=== PATIENT | male | born 1945 | race Caucasian/White ===

== ENCOUNTER 2021-10-19 08:37 | Inpatient (IN) ==
[2021-10-19] MEDS ORDERED: *HR* LORazepam 0.5 MG TABLET PO PRN (11:38)
[2021-10-19] MEDS ORDERED: Nitroglycerin 0.4 MG TAB.SUBL SL PRN (11:38)
[2021-10-19] MEDS ORDERED: HALOPERIDOL 0.5 MG PO PRN (11:38)
[2021-10-19] MEDS ORDERED: Hyoscyamine SL 0.125 MG TAB.SUBL SL PRN (11:38)
[2021-10-19] MEDS ORDERED: Bisacodyl 10 MG RECTAL SUPPOSITORY RC PRN (11:38)
[2021-10-19] MEDS ORDERED: [UNRECOGNIZED DRUG - OTHER] IVPB SCH (11:45)
[2021-10-19] MEDS ORDERED: *HR* Dextrose 50 % in Water (Syg) 50 ML SYRINGE IVP PRN (11:45)
[2021-10-19] MEDS ORDERED: D5% in Water 1,000 ML IVC PRN (11:45)
[2021-10-19] MEDS ORDERED: Dextrose Gel 15 GM/37.5 ML TUBE PO PRN ×2 (11:45)
[2021-10-19] MEDS ORDERED: VANCOMYCIN IVPB SCH (11:45)
[2021-10-19] MEDS ORDERED: Gabapentin 100 MG CAPSULE PO SCH (15:00)
[2021-10-19] MEDS ORDERED: Gabapentin 400 MG CAPSULE PO SCH (15:00)
[2021-10-19] MEDS ORDERED: Insulin LISPRO 300 UNITS/3 ML VIAL SUBQ SCH ×2 (16:30→21:00)
[2021-10-19] MEDS ORDERED: METFORMIN HCL 1000 MG PO SCH (21:00)
[2021-10-19] MEDS ORDERED: Furosemide 40 MG TABLET PO SCH (21:00)
[2021-10-19] MEDS ORDERED: NON-FORMULARY MEDICATION 1 EACH EACH (Carvedilol [Carvedilol] 12.5 MG Tablet) PO SCH (21:00)
[2021-10-19] MEDS ORDERED: Insulin DETEMIR 100 UNIT/ML X5UNITS SUBQ SCH (21:00)
[2021-10-20] MEDS ORDERED: *HR* Enoxaparin 40 MG/0.4 ML SYRINGE SQ SCH (07:00)
[2021-10-20] MEDS ORDERED: Aspirin Enteric Coated 81 MG Tablet PO SCH (09:00)
[2021-10-20] MEDS ORDERED: CILOSTAZOL 50 MG PO SCH (09:00)
[2021-10-20] MEDS ORDERED: Valsartan 160 MG TABLET PO SCH (09:00)
[2021-10-20] MEDS ORDERED: *HR* Glimepiride 4 MG TABLET PO SCH (09:00)
[2021-11-01] MEDS ORDERED: haloperidoL 1 MG TABLET PO PRN (00:10)
[2021-11-01] MEDS ORDERED: *HR* Dextrose 50 % in Water (Syg) 50 ML SYRINGE IVP PRN ×2 (00:14→09:36)
[2021-11-01] MEDS ORDERED: D5% in Water 1,000 ML IVC PRN ×2 (00:14→09:36)
[2021-11-01] MEDS ORDERED: Dextrose Gel 15 GM/37.5 ML TUBE PO PRN ×4 (00:14→09:36)
[2021-11-01] MEDS ORDERED: Bisacodyl 10 MG RECTAL SUPPOSITORY RC PRN (07:32)
[2021-11-01 08:47] LABS: Hemoglobin 8.9 g/dL (12.9-16.9); Mean Corpuscular HGB Conc 31.8 g/dL (31.6-35.5); Mean Corpuscular Hemoglobin 29.5 pg (28.0-33.3); Mean Corpuscular Volume 92.7 fL (83.0-100.0); Mean Platelet Volume 8.8 fL (9.4-12.4); Platelet Count 374 K/mcL (140-400); Red Blood Count 3.02 M/mcL (4.19-5.50); Red Cell Distribution Width 15.7 % (11.5-14.5); White Blood Count 10.3 K/mcL (4.3-11.1)
[2021-11-01] MEDS ORDERED: Vancomycin 1,250 MG/262.5 ML IV.SOLN IVPB SCH (09:00)
[2021-11-01 09:03] LABS: Alanine Aminotransferase 17 Units/L (7-52); Albumin 3.1 g/dL (3.5-5.7); Albumin/Globulin Ratio 1.3 (1.1-2.2); Alkaline Phosphatase 81 Units/L (34-104); Aspartate Amino Transferase 18 Units/L (13-39); BUN/Creatinine Ratio 13 (6-26); Bilirubin,Total 0.5 mg/dL (0.3-1.0); Blood Urea Nitrogen 13 mg/dL (8-23); Carbon Dioxide 26 mEq/L (23-29); Chloride 106 mEq/L (98-107); Globulin 2.3 g/dL (2.4-3.5); Glucose 143 mg/dL (70-105); Osmolality,Calculated 291 (280-300); Potassium 4.2 mEq/L (3.5-5.1); Sodium 139 mEq/L (136-145); Total Protein 5.4 g/dL (6.4-8.9); eGFR For African Americans > 60 (> 60); eGFR For Non-African Americans > 60 (> 60)
[2021-11-01] MEDS: Isosorbide MONOnitrate (24 HR) 30 MG TAB.ER.24H PO SCH (09:34)
[2021-11-01] MEDS: Gabapentin 400 MG CAPSULE PO SCH ×3 (09:34→20:05)
[2021-11-01] MEDS: *HR* Metformin 500 MG TABLET PO SCH ×2 (09:34→15:59)
[2021-11-01] MEDS: *HR* Amiodarone 200 MG TABLET PO SCH (09:35)
[2021-11-01] MEDS: *HR* Glimepiride 4 MG TABLET PO SCH (09:35)
[2021-11-01] MEDS: Furosemide 40 MG TABLET PO SCH ×2 (09:35→15:59)
[2021-11-01] MEDS: carvediloL 6.25 MG TABLET PO SCH ×2 (09:35→15:59)
[2021-11-01] MEDS: Valsartan 80 MG TABLET PO SCH (09:42)
[2021-11-01] MEDS: Insulin LISPRO 300 UNITS/3 ML VIAL SUBQ SCH ×3 (12:31→19:20)
[2021-11-01] MEDS ORDERED: *HR* Alteplase (Cathflo) 2 MG VIAL IVP ONE (15:12)
[2021-11-01] MEDS: Cefepime HCl 2,000 MG in 0.9 % Sodium Chloride Mini Bag 100 ML IVPB SCH ×2 (15:52→23:21)
[2021-11-01] MEDS: cilostazoL 100 MG TABLET PO SCH (20:05)
[2021-11-01] MEDS: Insulin DETEMIR 100 UNIT/ML X5UNITS SUBQ SCH (20:07)
[2021-11-02] MEDS ORDERED: *HR* Enoxaparin 40 MG/0.4 ML SYRINGE SQ SCH (06:00)
[2021-11-02] MEDS: Cefepime HCl 2,000 MG in 0.9 % Sodium Chloride Mini Bag 100 ML IVPB SCH ×2 (08:33→17:05)
[2021-11-02] MEDS: Isosorbide MONOnitrate (24 HR) 30 MG TAB.ER.24H PO SCH (08:41)
[2021-11-02] MEDS: Gabapentin 400 MG CAPSULE PO SCH ×3 (08:41→22:09)
[2021-11-02] MEDS: carvediloL 6.25 MG TABLET PO SCH ×2 (08:41→17:08)
[2021-11-02] MEDS: Valsartan 80 MG TABLET PO SCH (08:42)
[2021-11-02] MEDS: *HR* Amiodarone 200 MG TABLET PO SCH (08:42)
[2021-11-02] MEDS: Furosemide 40 MG TABLET PO SCH ×2 (08:42→17:08)
[2021-11-02] MEDS: *HR* Glimepiride 4 MG TABLET PO SCH (08:42)
[2021-11-02] MEDS: Insulin LISPRO 300 UNITS/3 ML VIAL SUBQ SCH ×4 (08:43→22:12)
[2021-11-02] MEDS: Insulin DETEMIR 100 UNIT/ML X5UNITS SUBQ SCH ×2 (08:59→22:10)
[2021-11-02 14:16] LABS: Hematocrit 23.9 % (37.5-50.1); Hemoglobin 7.7 g/dL (12.9-16.9); Mean Corpuscular HGB Conc 32.2 g/dL (31.6-35.5); Mean Corpuscular Hemoglobin 29.6 pg (28.0-33.3); Mean Corpuscular Volume 91.9 fL (83.0-100.0); Platelet Count 310 K/mcL (140-400); Red Cell Distribution Width 15.9 % (11.5-14.5); White Blood Count 9.8 K/mcL (4.3-11.1)
[2021-11-02 14:25] LABS: Calcium 8.9 mg/dL (8.6-10.3); Magnesium 1.9 mg/dL (1.6-2.6); Potassium 4.1 mEq/L (3.5-5.1)
[2021-11-02] MEDS: cilostazoL 100 MG TABLET PO SCH (22:08)
[2021-11-03] MEDS: Cefepime HCl 2,000 MG in 0.9 % Sodium Chloride Mini Bag 100 ML IVPB SCH ×3 (01:36→17:23)
[2021-11-03 05:03] LABS: Hemoglobin 7.5 g/dL (12.9-16.9); Mean Corpuscular HGB Conc 31.3 g/dL (31.6-35.5); Mean Corpuscular Hemoglobin 29.3 pg (28.0-33.3); Mean Corpuscular Volume 93.8 fL (83.0-100.0); Mean Platelet Volume 9.1 fL (9.4-12.4); Platelet Count 306 K/mcL (140-400); Red Blood Count 2.56 M/mcL (4.19-5.50); Red Cell Distribution Width 15.8 % (11.5-14.5); White Blood Count 9.6 K/mcL (4.3-11.1)
[2021-11-03 05:15] LABS: Albumin 2.8 g/dL (3.5-5.7); Albumin/Globulin Ratio 1.3 (1.1-2.2); Bilirubin,Total 0.3 mg/dL (0.3-1.0); Globulin 2.1 g/dL (2.4-3.5); Magnesium 1.9 mg/dL (1.6-2.6); Potassium 4.2 mEq/L (3.5-5.1); Total Protein 4.9 g/dL (6.4-8.9)
[2021-11-03] MEDS: Insulin LISPRO 300 UNITS/3 ML VIAL SUBQ SCH ×4 (08:14→21:55)
[2021-11-03] MEDS: *HR* Amiodarone 200 MG TABLET PO SCH (08:16)
[2021-11-03] MEDS: Valsartan 80 MG TABLET PO SCH (08:16)
[2021-11-03] MEDS: carvediloL 6.25 MG TABLET PO SCH ×2 (08:16→17:22)
[2021-11-03] MEDS: Isosorbide MONOnitrate (24 HR) 30 MG TAB.ER.24H PO SCH (08:17)
[2021-11-03] MEDS: *HR* Glimepiride 4 MG TABLET PO SCH (08:17)
[2021-11-03] MEDS: Gabapentin 400 MG CAPSULE PO SCH ×3 (08:17→22:07)
[2021-11-03] MEDS: Furosemide 40 MG TABLET PO SCH (08:17)
[2021-11-03] MEDS: Insulin DETEMIR 100 UNIT/ML X5UNITS SUBQ SCH ×2 (08:35→22:08)
[2021-11-03] MEDS ORDERED: 0.9 % Sodium Chloride 1,000 ML IVC SCH (10:45)
[2021-11-03 19:29] LABS: % Iron Saturation 16 % (20-55); Iron 33 mcg/dL (65-175); Transferrin 149 mg/dL (203-362)
[2021-11-03 19:54] LABS: Folate 9.5 ng/mL (3.0-16.0)
[2021-11-03] MEDS: cilostazoL 100 MG TABLET PO SCH (22:08)
[2021-11-04] MEDS: Cefepime HCl 2,000 MG in 0.9 % Sodium Chloride Mini Bag 100 ML IVPB SCH ×3 (00:40→22:15)
[2021-11-04] MEDS: Insulin LISPRO 300 UNITS/3 ML VIAL SUBQ SCH ×4 (09:56→22:32)
[2021-11-04] MEDS: *HR* Amiodarone 200 MG TABLET PO SCH (09:57)
[2021-11-04] MEDS: Valsartan 80 MG TABLET PO SCH (09:57)
[2021-11-04] MEDS: Isosorbide MONOnitrate (24 HR) 30 MG TAB.ER.24H PO SCH (09:57)
[2021-11-04] MEDS: carvediloL 6.25 MG TABLET PO SCH ×2 (09:57→16:52)
[2021-11-04] MEDS: *HR* Glimepiride 4 MG TABLET PO SCH (09:57)
[2021-11-04] MEDS: Gabapentin 400 MG CAPSULE PO SCH ×3 (09:57→22:13)
[2021-11-04] MEDS: Insulin DETEMIR 100 UNIT/ML X5UNITS SUBQ SCH ×2 (10:11→22:14)
[2021-11-04 17:07] LABS: Basophils # 0.1 K/mcL (0.0-0.2); Basophils % 0.6 %; Eosinophils # 0.4 K/mcL (0.0-0.6); Eosinophils % 4.1 %; Hematocrit 25.6 % (37.5-50.1); Immature Granulocytes % 0.9 % (0-4); Lymphocytes # 1.8 K/mcL (0.6-4.6); Lymphocytes % 17.1 %; Mean Corpuscular HGB Conc 31.3 g/dL (31.6-35.5); Mean Corpuscular Hemoglobin 29.2 pg (28.0-33.3); Mean Corpuscular Volume 93.4 fL (83.0-100.0); Mean Platelet Volume 9.1 fL (9.4-12.4); Monocytes # 0.8 K/mcL (0.0-1.3); Monocytes % 7.7 %; Neutrophils # 7.4 K/mcL (1.6-8.9); Platelet Count 308 K/mcL (140-400); Red Blood Count 2.74 M/mcL (4.19-5.50); Red Cell Distribution Width 15.7 % (11.5-14.5); Segmented Neutrophils % 69.6 %; White Blood Count 10.6 K/mcL (4.3-11.1)
[2021-11-04 17:20] LABS: Calcium 9.2 mg/dL (8.6-10.3); Potassium 4.4 mEq/L (3.5-5.1)
[2021-11-04] MEDS: cilostazoL 100 MG TABLET PO SCH (22:14)
[2021-11-05 04:59] LABS: BUN/Creatinine Ratio 14 (6-26); Blood Urea Nitrogen 21 mg/dL (8-23); eGFR For African Americans 54 (> 60); eGFR For Non-African Americans 45 (> 60)
[2021-11-05] MEDS: Insulin LISPRO 300 UNITS/3 ML VIAL SUBQ SCH ×4 (07:33→21:27)
[2021-11-05] MEDS: Insulin DETEMIR 100 UNIT/ML X5UNITS SUBQ SCH (08:09)
[2021-11-05] MEDS: *HR* Amiodarone 200 MG TABLET PO SCH (08:11)
[2021-11-05] MEDS: Valsartan 80 MG TABLET PO SCH (08:12)
[2021-11-05] MEDS: *HR* Glimepiride 4 MG TABLET PO SCH (08:12)
[2021-11-05] MEDS: Isosorbide MONOnitrate (24 HR) 30 MG TAB.ER.24H PO SCH (08:12)
[2021-11-05] MEDS: carvediloL 6.25 MG TABLET PO SCH ×2 (08:12→16:30)
[2021-11-05] MEDS: Gabapentin 400 MG CAPSULE PO SCH ×2 (08:12→16:30)
[2021-11-05 08:56] LABS: C-Reactive Protein 7 mg/L (Less than 10)
[2021-11-05] MEDS: Cefepime HCl 2,000 MG in 0.9 % Sodium Chloride Mini Bag 100 ML IVPB SCH (13:03)
[2021-11-06] MEDS: cilostazoL 100 MG TABLET PO SCH ×2 (00:26→20:02)
[2021-11-06] MEDS: Gabapentin 400 MG CAPSULE PO SCH ×4 (00:27→20:04)
[2021-11-06] MEDS: Insulin DETEMIR 100 UNIT/ML X5UNITS SUBQ SCH ×3 (00:28→20:04)
[2021-11-06] MEDS: Cefepime HCl 2,000 MG in 0.9 % Sodium Chloride Mini Bag 100 ML IVPB SCH ×3 (00:29→21:43)
[2021-11-06] MEDS ORDERED: 0.9 % Sodium Chloride Mini Bag 100 ML ONE (00:29)
[2021-11-06] MEDS: Insulin LISPRO 300 UNITS/3 ML VIAL SUBQ SCH ×4 (09:31→21:59)
[2021-11-06] MEDS: carvediloL 6.25 MG TABLET PO SCH ×2 (09:42→15:36)
[2021-11-06] MEDS: Isosorbide MONOnitrate (24 HR) 30 MG TAB.ER.24H PO SCH (09:43)
[2021-11-06] MEDS: Valsartan 80 MG TABLET PO SCH (09:43)
[2021-11-06] MEDS: Vancomycin 1,500 MG/265 ML IV.SOLN IVPB SCH (09:43)
[2021-11-06] MEDS: *HR* Glimepiride 4 MG TABLET PO SCH (09:43)
[2021-11-06] MEDS: *HR* Amiodarone 200 MG TABLET PO SCH (09:43)
[2021-11-07 08:12] LABS: Basophils # 0.1 K/mcL (0.0-0.2); Basophils % 0.4 %; Eosinophils # 0.4 K/mcL (0.0-0.6); Eosinophils % 1.6 %; Hematocrit 26.5 % (37.5-50.1); Hemoglobin 8.2 g/dL (12.9-16.9); Immature Granulocytes % 0.7 % (0-4); Mean Corpuscular HGB Conc 30.9 g/dL (31.6-35.5); Mean Corpuscular Hemoglobin 28.7 pg (28.0-33.3); Mean Corpuscular Volume 92.7 fL (83.0-100.0); Mean Platelet Volume 9.3 fL (9.4-12.4); Monocytes # 1.3 K/mcL (0.0-1.3); Monocytes % 5.5 %; Neutrophils # 20.4 K/mcL (1.6-8.9); Platelet Count 309 K/mcL (140-400); Red Blood Count 2.86 M/mcL (4.19-5.50); Red Cell Distribution Width 15.7 % (11.5-14.5); Segmented Neutrophils % 83.8 %; White Blood Count 24.3 K/mcL (4.3-11.1)
[2021-11-07 08:24] LABS: Calcium 9.1 mg/dL (8.6-10.3); Potassium 3.9 mEq/L (3.5-5.1)
[2021-11-07 09:39] LABS: Lymphocytes # 1.9 K/mcL (0.6-4.6)
[2021-11-07] MEDS: Insulin LISPRO 300 UNITS/3 ML VIAL SUBQ SCH ×4 (09:41→19:28)
[2021-11-07] MEDS: Valsartan 80 MG TABLET PO SCH (09:44)
[2021-11-07] MEDS: Isosorbide MONOnitrate (24 HR) 30 MG TAB.ER.24H PO SCH (09:45)
[2021-11-07] MEDS: *HR* Glimepiride 4 MG TABLET PO SCH (09:45)
[2021-11-07] MEDS: Cefepime HCl 2,000 MG in 0.9 % Sodium Chloride Mini Bag 100 ML IVPB SCH (09:45)
[2021-11-07] MEDS: *HR* Amiodarone 200 MG TABLET PO SCH (09:45)
[2021-11-07] MEDS: carvediloL 6.25 MG TABLET PO SCH ×2 (09:45→18:24)
[2021-11-07] MEDS: Gabapentin 400 MG CAPSULE PO SCH ×3 (09:45→19:40)
[2021-11-07] MEDS: Vancomycin 1,500 MG/265 ML IV.SOLN IVPB SCH (10:03)
[2021-11-07] MEDS: Insulin DETEMIR 100 UNIT/ML X5UNITS SUBQ SCH (10:59)
[2021-11-07] MEDS: Furosemide 20 MG TABLET PO SCH (16:34)
[2021-11-07] MEDS: cilostazoL 100 MG TABLET PO SCH (19:40)
[2021-11-08 05:44] LABS: Basophils % 0.2 %; Eosinophils # 0.4 K/mcL (0.0-0.6); Eosinophils % 2.5 %; Hematocrit 23.4 % (37.5-50.1); Hemoglobin 7.2 g/dL (12.9-16.9); Immature Granulocytes % 0.6 % (0-4); Lymphocytes % 11.5 %; Mean Corpuscular HGB Conc 30.8 g/dL (31.6-35.5); Mean Corpuscular Hemoglobin 28.9 pg (28.0-33.3); Mean Platelet Volume 9.5 fL (9.4-12.4); Monocytes % 6.1 %; Neutrophils # 13.5 K/mcL (1.6-8.9); Platelet Count 271 K/mcL (140-400); Red Blood Count 2.49 M/mcL (4.19-5.50); Segmented Neutrophils % 79.1 %; White Blood Count 17.1 K/mcL (4.3-11.1)
[2021-11-08 06:03] LABS: Calcium 8.9 mg/dL (8.6-10.3); Potassium 3.6 mEq/L (3.5-5.1)
[2021-11-08] MEDS: Insulin LISPRO 300 UNITS/3 ML VIAL SUBQ SCH ×4 (09:22→18:07)
[2021-11-08] MEDS: Gabapentin 400 MG CAPSULE PO SCH ×3 (09:41→20:38)
[2021-11-08] MEDS: Valsartan 80 MG TABLET PO SCH (09:41)
[2021-11-08] MEDS: carvediloL 6.25 MG TABLET PO SCH ×2 (09:41→17:55)
[2021-11-08] MEDS: Isosorbide MONOnitrate (24 HR) 30 MG TAB.ER.24H PO SCH (09:42)
[2021-11-08] MEDS: Vancomycin 1,250 MG/262.5 ML IV.SOLN IVPB SCH (09:42)
[2021-11-08] MEDS: Lactobacillus 1 EACH CAP.SPRINK PO SCH (09:42)
[2021-11-08] MEDS: *HR* Amiodarone 200 MG TABLET PO SCH (09:42)
[2021-11-08] MEDS: Furosemide 20 MG TABLET PO SCH (10:43)
[2021-11-08] MEDS ORDERED: Furosemide 20 MG TABLET PO SCH (12:00)
[2021-11-08] MEDS: Vancomycin Oral Soln 125 MG/2.5 ML UDC PO SCH ×3 (14:27→22:58)
[2021-11-08] MEDS: Desitin (Zinc Oxide) Max 57 GM TUBE TP SCH ×2 (14:29→21:35)
[2021-11-08] MEDS: Lidocaine 5% OINT 35 APPL/35.44 GM TUBE TP SCH ×2 (14:30→21:35)
[2021-11-08] MEDS ORDERED: Insulin LISPRO 300 UNITS/3 ML VIAL SUBQ SCH (17:01)
[2021-11-08] MEDS: Albumin 25% 25gram/100mL 25 GM/100 ML IV.SOLN IVPB SCH (17:53)
[2021-11-08] MEDS ORDERED: 0.9 % Sodium Chloride 250 ML IVC ONE (19:15)
[2021-11-08] MEDS: Furosemide 20 MG/2 ML VIAL IVP SCH (20:37)
[2021-11-08] MEDS: cilostazoL 100 MG TABLET PO SCH (20:38)
[2021-11-09] MEDS: Albumin 25% 25gram/100mL 25 GM/100 ML IV.SOLN IVPB SCH ×2 (05:04→16:44)
[2021-11-09 05:13] LABS: Hematocrit 24.5 % (37.5-50.1); Hemoglobin 7.7 g/dL (12.9-16.9); Mean Corpuscular HGB Conc 31.4 g/dL (31.6-35.5); Mean Corpuscular Hemoglobin 29.1 pg (28.0-33.3); Mean Corpuscular Volume 92.5 fL (83.0-100.0); Mean Platelet Volume 9.6 fL (9.4-12.4); Platelet Count 271 K/mcL (140-400); Red Blood Count 2.65 M/mcL (4.19-5.50); Red Cell Distribution Width 15.9 % (11.5-14.5); White Blood Count 13.2 K/mcL (4.3-11.1)
[2021-11-09 05:33] LABS: Albumin 2.9 g/dL (3.5-5.7); Albumin/Globulin Ratio 1.2 (1.1-2.2); Bilirubin,Total 0.4 mg/dL (0.3-1.0); Calcium 9.1 mg/dL (8.6-10.3); Globulin 2.4 g/dL (2.4-3.5); Potassium 3.8 mEq/L (3.5-5.1); Total Protein 5.3 g/dL (6.4-8.9)
[2021-11-09] MEDS: Insulin LISPRO 300 UNITS/3 ML VIAL SUBQ SCH ×3 (09:16→17:38)
[2021-11-09] MEDS: carvediloL 6.25 MG TABLET PO SCH ×2 (09:17→16:56)
[2021-11-09] MEDS: Furosemide 20 MG/2 ML VIAL IVP SCH ×2 (09:17→20:39)
[2021-11-09] MEDS: Lactobacillus 1 EACH CAP.SPRINK PO SCH (09:18)
[2021-11-09] MEDS: Isosorbide MONOnitrate (24 HR) 30 MG TAB.ER.24H PO SCH (09:18)
[2021-11-09] MEDS: *HR* Amiodarone 200 MG TABLET PO SCH (09:18)
[2021-11-09] MEDS: Vancomycin Oral Soln 125 MG/2.5 ML UDC PO SCH ×4 (09:18→20:41)
[2021-11-09] MEDS: Valsartan 80 MG TABLET PO SCH (09:18)
[2021-11-09] MEDS: Gabapentin 400 MG CAPSULE PO SCH ×3 (09:18→20:39)
[2021-11-09] MEDS: Lidocaine 5% OINT 35 APPL/35.44 GM TUBE TP SCH ×3 (09:19→20:57)
[2021-11-09] MEDS: Desitin (Zinc Oxide) Max 57 GM TUBE TP SCH ×3 (09:37→20:57)
[2021-11-09] MEDS ORDERED: 0.9 % Sodium Chloride 250 ML IVC SCH (11:30)
[2021-11-09] MEDS: Vancomycin 1,250 MG/262.5 ML IV.SOLN IVPB SCH (11:46)
[2021-11-09] MEDS: Iron Sucrose Complex 200 MG in 0.9 % Sodium Chloride 100 ML IVPB SCH (17:37)
[2021-11-09] MEDS: Acetaminophen 325 MG TABLET PO PRN (20:38)
[2021-11-09] MEDS: cilostazoL 100 MG TABLET PO SCH (20:40)
[2021-11-10] MEDS: Desitin (Zinc Oxide) Max 57 GM TUBE TP SCH ×4 (01:45→21:11)
[2021-11-10] MEDS: Lidocaine 5% OINT 35 APPL/35.44 GM TUBE TP SCH ×4 (01:46→21:11)
[2021-11-10 04:36] LABS: Basophils # 0.1 K/mcL (0.0-0.2); Basophils % 0.5 %; Eosinophils # 0.3 K/mcL (0.0-0.6); Eosinophils % 2.8 %; Hematocrit 26.1 % (37.5-50.1); Hemoglobin 8.3 g/dL (12.9-16.9); Immature Granulocytes % 0.4 % (0-4); Lymphocytes # 1.8 K/mcL (0.6-4.6); Lymphocytes % 15.4 %; Mean Corpuscular HGB Conc 31.8 g/dL (31.6-35.5); Mean Corpuscular Hemoglobin 29.1 pg (28.0-33.3); Mean Corpuscular Volume 91.6 fL (83.0-100.0); Mean Platelet Volume 9.5 fL (9.4-12.4); Monocytes # 1.1 K/mcL (0.0-1.3); Monocytes % 9.8 %; Platelet Count 267 K/mcL (140-400); Red Blood Count 2.85 M/mcL (4.19-5.50); Red Cell Distribution Width 15.5 % (11.5-14.5); Segmented Neutrophils % 71.1 %; White Blood Count 11.6 K/mcL (4.3-11.1)
[2021-11-10 04:38] LABS: Neutrophils # 8.3 K/mcL (1.6-8.9)
[2021-11-10 04:51] LABS: Calcium 9.1 mg/dL (8.6-10.3); Magnesium 1.9 mg/dL (1.6-2.6); Potassium 3.7 mEq/L (3.5-5.1)
[2021-11-10] MEDS: Albumin 25% 25gram/100mL 25 GM/100 ML IV.SOLN IVPB SCH (06:30)
[2021-11-10] MEDS: Isosorbide MONOnitrate (24 HR) 30 MG TAB.ER.24H PO SCH (07:46)
[2021-11-10] MEDS: carvediloL 6.25 MG TABLET PO SCH ×2 (07:46→16:03)
[2021-11-10] MEDS: Iron Sucrose Complex 200 MG in 0.9 % Sodium Chloride 100 ML IVPB SCH (07:46)
[2021-11-10] MEDS: Gabapentin 400 MG CAPSULE PO SCH ×3 (07:47→21:10)
[2021-11-10] MEDS: Valsartan 80 MG TABLET PO SCH (07:47)
[2021-11-10] MEDS: Furosemide 20 MG/2 ML VIAL IVP SCH (07:47)
[2021-11-10] MEDS: Lactobacillus 1 EACH CAP.SPRINK PO SCH (07:47)
[2021-11-10] MEDS: Vancomycin Oral Soln 125 MG/2.5 ML UDC PO SCH ×4 (07:47→21:11)
[2021-11-10] MEDS: Insulin LISPRO 300 UNITS/3 ML VIAL SUBQ SCH ×3 (07:47→16:00)
[2021-11-10] MEDS: *HR* Amiodarone 200 MG TABLET PO SCH (07:47)
[2021-11-10] MEDS ORDERED: Iron Sucrose Complex 200 MG in 0.9 % Sodium Chloride 100 ML IVPB SCH (10:50)
[2021-11-10] MEDS: cilostazoL 100 MG TABLET PO SCH (21:10)
[2021-11-11 06:00] LABS: Hematocrit 26.9 % (37.5-50.1); Hemoglobin 8.4 g/dL (12.9-16.9); Mean Corpuscular HGB Conc 31.2 g/dL (31.6-35.5); Mean Corpuscular Hemoglobin 28.6 pg (28.0-33.3); Mean Corpuscular Volume 91.5 fL (83.0-100.0); Mean Platelet Volume 9.6 fL (9.4-12.4); Platelet Count 270 K/mcL (140-400); Red Blood Count 2.94 M/mcL (4.19-5.50); Red Cell Distribution Width 15.5 % (11.5-14.5); White Blood Count 10.7 K/mcL (4.3-11.1)
[2021-11-11 06:15] LABS: Albumin 3.2 g/dL (3.5-5.7); Albumin/Globulin Ratio 1.4 (1.1-2.2); Bilirubin,Total 0.5 mg/dL (0.3-1.0); Calcium 9.3 mg/dL (8.6-10.3); Globulin 2.3 g/dL (2.4-3.5); Magnesium 1.8 mg/dL (1.6-2.6); Potassium 3.6 mEq/L (3.5-5.1); Total Protein 5.5 g/dL (6.4-8.9)
[2021-11-11] MEDS ORDERED: Furosemide 20 MG/2 ML VIAL IVP SCH (09:00)
[2021-11-11] MEDS: Desitin (Zinc Oxide) Max 57 GM TUBE TP SCH ×3 (09:15→22:54)
[2021-11-11] MEDS: Insulin LISPRO 300 UNITS/3 ML VIAL SUBQ SCH ×3 (09:15→17:18)
[2021-11-11] MEDS: Lidocaine 5% OINT 35 APPL/35.44 GM TUBE TP SCH ×3 (09:15→22:54)
[2021-11-11] MEDS: Iron Sucrose Complex 200 MG in 0.9 % Sodium Chloride 100 ML IVPB SCH (09:16)
[2021-11-11] MEDS: Vancomycin Oral Soln 125 MG/2.5 ML UDC PO SCH ×4 (09:17→20:01)
[2021-11-11] MEDS: carvediloL 6.25 MG TABLET PO SCH ×2 (09:18→17:18)
[2021-11-11] MEDS: Gabapentin 400 MG CAPSULE PO SCH ×3 (09:19→19:59)
[2021-11-11] MEDS: Lactobacillus 1 EACH CAP.SPRINK PO SCH (09:19)
[2021-11-11] MEDS: Valsartan 80 MG TABLET PO SCH (09:19)
[2021-11-11] MEDS: *HR* Amiodarone 200 MG TABLET PO SCH (09:19)
[2021-11-11] MEDS: Isosorbide MONOnitrate (24 HR) 30 MG TAB.ER.24H PO SCH (09:20)
[2021-11-11] MEDS: Furosemide 20 MG/2 ML VIAL IVP SCH (17:19)
[2021-11-11] MEDS: cilostazoL 100 MG TABLET PO SCH (19:59)
[2021-11-12 05:27] LABS: Basophils # 0.1 K/mcL (0.0-0.2); Basophils % 0.5 %; Eosinophils # 0.3 K/mcL (0.0-0.6); Eosinophils % 2.8 %; Hematocrit 26.8 % (37.5-50.1); Hemoglobin 8.4 g/dL (12.9-16.9); Immature Granulocytes % 0.7 % (0-4); Mean Corpuscular HGB Conc 31.3 g/dL (31.6-35.5); Mean Corpuscular Hemoglobin 29.1 pg (28.0-33.3); Mean Corpuscular Volume 92.7 fL (83.0-100.0); Mean Platelet Volume 9.5 fL (9.4-12.4); Monocytes # 1.2 K/mcL (0.0-1.3); Monocytes % 10.4 %; Neutrophils # 7.5 K/mcL (1.6-8.9); Platelet Count 258 K/mcL (140-400); Red Blood Count 2.89 M/mcL (4.19-5.50); Red Cell Distribution Width 15.5 % (11.5-14.5); Segmented Neutrophils % 67.6 %
[2021-11-12 06:42] LABS: BUN/Creatinine Ratio 13 (6-26); Blood Urea Nitrogen 26 mg/dL (8-23); eGFR For African Americans 41 (> 60); eGFR For Non-African Americans 34 (> 60)
[2021-11-12 08:21] LABS: C-Reactive Protein 45 mg/L (Less than 10)
[2021-11-12] MEDS: Valsartan 80 MG TABLET PO SCH (08:34)
[2021-11-12] MEDS: Isosorbide MONOnitrate (24 HR) 30 MG TAB.ER.24H PO SCH (08:34)
[2021-11-12] MEDS: *HR* Amiodarone 200 MG TABLET PO SCH (08:34)
[2021-11-12] MEDS: Lactobacillus 1 EACH CAP.SPRINK PO SCH (08:34)
[2021-11-12] MEDS: Vancomycin Oral Soln 125 MG/2.5 ML UDC PO SCH ×4 (08:35→21:54)
[2021-11-12] MEDS: carvediloL 6.25 MG TABLET PO SCH ×2 (08:35→15:40)
[2021-11-12] MEDS: Gabapentin 400 MG CAPSULE PO SCH ×3 (08:35→21:54)
[2021-11-12] MEDS: Lidocaine 5% OINT 35 APPL/35.44 GM TUBE TP SCH ×2 (08:36→13:10)
[2021-11-12] MEDS: Desitin (Zinc Oxide) Max 57 GM TUBE TP SCH (08:36)
[2021-11-12] MEDS: Insulin LISPRO 300 UNITS/3 ML VIAL SUBQ SCH ×3 (08:37→17:13)
[2021-11-12] MEDS: Furosemide 20 MG/2 ML VIAL IVP SCH (08:39)
[2021-11-12] MEDS ORDERED: Lidocaine 5% OINT 35 APPL/35.44 GM TUBE TP PRN (14:42)
[2021-11-12 15:20] LABS: Creatine Kinase 23 Units/L (30-223)
[2021-11-12] MEDS: Nystatin POWDER 30 GM BOTTLE TP SCH ×2 (15:40→22:04)
[2021-11-12] MEDS: DAPTOmycin 650 MG in 0.9 % Sodium Chloride 100 ML IVPB SCH (17:13)
[2021-11-12] MEDS: cilostazoL 100 MG TABLET PO SCH (21:53)
[2021-11-13 05:43] LABS: Hematocrit 28.4 % (37.5-50.1); Hemoglobin 8.8 g/dL (12.9-16.9); Mean Corpuscular Hemoglobin 28.9 pg (28.0-33.3); Mean Corpuscular Volume 93.1 fL (83.0-100.0); Mean Platelet Volume 9.6 fL (9.4-12.4); Platelet Count 277 K/mcL (140-400); Red Blood Count 3.05 M/mcL (4.19-5.50); Red Cell Distribution Width 15.8 % (11.5-14.5); White Blood Count 12.1 K/mcL (4.3-11.1)
[2021-11-13 06:14] LABS: Albumin/Globulin Ratio 1.3 (1.1-2.2); Bilirubin,Total 0.4 mg/dL (0.3-1.0); Globulin 2.4 g/dL (2.4-3.5); Magnesium 1.8 mg/dL (1.6-2.6); Potassium 3.6 mEq/L (3.5-5.1); Total Protein 5.4 g/dL (6.4-8.9)
[2021-11-13] MEDS: Insulin LISPRO 300 UNITS/3 ML VIAL SUBQ SCH ×3 (07:40→16:52)
[2021-11-13] MEDS: *HR* Amiodarone 200 MG TABLET PO SCH (07:41)
[2021-11-13] MEDS: carvediloL 6.25 MG TABLET PO SCH ×2 (07:41→16:50)
[2021-11-13] MEDS: Gabapentin 400 MG CAPSULE PO SCH ×3 (07:42→21:29)
[2021-11-13] MEDS: Isosorbide MONOnitrate (24 HR) 30 MG TAB.ER.24H PO SCH (07:42)
[2021-11-13] MEDS: Lactobacillus 1 EACH CAP.SPRINK PO SCH (07:42)
[2021-11-13] MEDS: Vancomycin Oral Soln 125 MG/2.5 ML UDC PO SCH ×4 (07:43→21:30)
[2021-11-13] MEDS: Nystatin POWDER 30 GM BOTTLE TP SCH ×3 (07:44→21:30)
[2021-11-13] MEDS: DAPTOmycin 650 MG in 0.9 % Sodium Chloride 100 ML IVPB SCH (17:58)
[2021-11-13] MEDS: Acetaminophen 325 MG TABLET PO PRN (21:28)
[2021-11-13] MEDS: cilostazoL 100 MG TABLET PO SCH (21:29)
[2021-11-13] MEDS: *HR* LORazepam 0.5 MG TABLET PO PRN (21:29)
[2021-11-14 05:40] LABS: Hematocrit 27.3 % (37.5-50.1); Hemoglobin 8.4 g/dL (12.9-16.9); Mean Corpuscular HGB Conc 30.8 g/dL (31.6-35.5); Mean Corpuscular Hemoglobin 28.6 pg (28.0-33.3); Mean Corpuscular Volume 92.9 fL (83.0-100.0); Mean Platelet Volume 9.6 fL (9.4-12.4); Platelet Count 266 K/mcL (140-400); Red Blood Count 2.94 M/mcL (4.19-5.50); Red Cell Distribution Width 15.6 % (11.5-14.5); White Blood Count 10.2 K/mcL (4.3-11.1)
[2021-11-14 05:58] LABS: Magnesium 1.9 mg/dL (1.6-2.6); Potassium 3.7 mEq/L (3.5-5.1)
[2021-11-14] MEDS: Vancomycin Oral Soln 125 MG/2.5 ML UDC PO SCH ×4 (09:12→19:26)
[2021-11-14] MEDS: Furosemide 20 MG TABLET PO SCH ×2 (09:13→17:06)
[2021-11-14] MEDS: Nystatin POWDER 30 GM BOTTLE TP SCH ×3 (09:13→19:27)
[2021-11-14] MEDS: carvediloL 6.25 MG TABLET PO SCH ×2 (09:13→17:04)
[2021-11-14] MEDS: Isosorbide MONOnitrate (24 HR) 30 MG TAB.ER.24H PO SCH (09:13)
[2021-11-14] MEDS: *HR* Amiodarone 200 MG TABLET PO SCH (09:13)
[2021-11-14] MEDS: Gabapentin 400 MG CAPSULE PO SCH ×3 (09:13→19:26)
[2021-11-14] MEDS: Lactobacillus 1 EACH CAP.SPRINK PO SCH (09:13)
[2021-11-14] MEDS: Insulin LISPRO 300 UNITS/3 ML VIAL SUBQ SCH ×3 (09:14→17:06)
[2021-11-14] MEDS: DAPTOmycin 650 MG in 0.9 % Sodium Chloride 100 ML IVPB SCH (17:11)
[2021-11-14] MEDS: *HR* LORazepam 0.5 MG TABLET PO PRN (19:26)
[2021-11-14] MEDS: cilostazoL 100 MG TABLET PO SCH (19:26)
[2021-11-15] MEDS: *HR* Amiodarone 200 MG TABLET PO SCH (08:32)
[2021-11-15] MEDS: Gabapentin 400 MG CAPSULE PO SCH ×3 (08:32→19:56)
[2021-11-15] MEDS: carvediloL 6.25 MG TABLET PO SCH ×2 (08:33→15:28)
[2021-11-15] MEDS: Vancomycin Oral Soln 125 MG/2.5 ML UDC PO SCH ×4 (08:33→19:56)
[2021-11-15] MEDS: Nystatin POWDER 30 GM BOTTLE TP SCH ×3 (08:33→19:57)
[2021-11-15] MEDS: Furosemide 20 MG TABLET PO SCH ×2 (08:33→15:28)
[2021-11-15] MEDS: Lactobacillus 1 EACH CAP.SPRINK PO SCH (08:33)
[2021-11-15] MEDS: Isosorbide MONOnitrate (24 HR) 30 MG TAB.ER.24H PO SCH (08:33)
[2021-11-15] MEDS: Insulin LISPRO 300 UNITS/3 ML VIAL SUBQ SCH ×3 (08:34→17:40)
[2021-11-15] MEDS ORDERED: Chloraseptic Spray 177 ML BOTTLE MM PRN (15:44)
[2021-11-15 16:49] LABS: Adenovirus Not Detected (Not Detect); Bordetella Pertussis Not Detected (Not Detect); Chlamydophila pneumoniae Not Detected (Not Detect); Coronavirus 229E Not Detected (Not Detect); Coronavirus HKU1 Not Detected (Not Detect); Coronavirus NL63 Not Detected (Not Detect); Coronavirus OC43 Not Detected (Not Detect); Human Metapneumovirus Not Detected (Not Detect); Human Rhinovirus/Enterovirus Not Detected (Not Detect); Influenza A Subtype 2009 H1 Not Detected (Not Detect); Influenza B Not Detected (Not Detect); Mycoplasma pneumoniae Not Detected (Not Detect); Parainfluenza Virus 1 Not Detected (Not Detect); Parainfluenza Virus 2 Not Detected (Not Detect); Parainfluenza Virus 3 Not Detected (Not Detect); Parainfluenza Virus 4 Not Detected (Not Detect); Respiratory Syncytial Virus Not Detected (Not Detect); SARS-CoV-2 Not Detected (Not Detect)
[2021-11-15] MEDS: DAPTOmycin 650 MG in 0.9 % Sodium Chloride 100 ML IVPB SCH (17:38)
[2021-11-15] MEDS: cilostazoL 100 MG TABLET PO SCH (19:56)
[2021-11-16 05:28] LABS: Hemoglobin 8.4 g/dL (12.9-16.9); Mean Corpuscular HGB Conc 31.1 g/dL (31.6-35.5); Mean Corpuscular Hemoglobin 28.8 pg (28.0-33.3); Mean Corpuscular Volume 92.5 fL (83.0-100.0); Mean Platelet Volume 9.3 fL (9.4-12.4); Platelet Count 249 K/mcL (140-400); Red Blood Count 2.92 M/mcL (4.19-5.50); Red Cell Distribution Width 15.4 % (11.5-14.5); White Blood Count 11.5 K/mcL (4.3-11.1)
[2021-11-16 05:45] LABS: Calcium 8.2 mg/dL (8.6-10.3); Magnesium 1.9 mg/dL (1.6-2.6); Potassium 3.9 mEq/L (3.5-5.1)
[2021-11-16] MEDS: Insulin LISPRO 300 UNITS/3 ML VIAL SUBQ SCH ×3 (10:07→17:31)
[2021-11-16] MEDS: Vancomycin Oral Soln 125 MG/2.5 ML UDC PO SCH ×4 (10:09→21:43)
[2021-11-16] MEDS: Isosorbide MONOnitrate (24 HR) 30 MG TAB.ER.24H PO SCH (10:09)
[2021-11-16] MEDS: Lactobacillus 1 EACH CAP.SPRINK PO SCH (10:09)
[2021-11-16] MEDS: *HR* Amiodarone 200 MG TABLET PO SCH (10:09)
[2021-11-16] MEDS: Furosemide 20 MG TABLET PO SCH ×2 (10:09→17:29)
[2021-11-16] MEDS: Nystatin POWDER 30 GM BOTTLE TP SCH ×3 (10:09→21:45)
[2021-11-16] MEDS: Gabapentin 400 MG CAPSULE PO SCH ×3 (10:09→21:43)
[2021-11-16] MEDS: carvediloL 6.25 MG TABLET PO SCH ×2 (10:09→17:29)
[2021-11-16] MEDS: cefTRIAXone 1,000 MG in 0.9 % Sodium Chloride 10 ML IVP SCH (13:47)
[2021-11-16 16:10] LABS: Adenovirus Not Detected (Not Detect); Bordetella Pertussis Not Detected (Not Detect); Chlamydophila pneumoniae Not Detected (Not Detect); Coronavirus 229E Not Detected (Not Detect); Coronavirus HKU1 Not Detected (Not Detect); Coronavirus NL63 Not Detected (Not Detect); Coronavirus OC43 Not Detected (Not Detect); Human Metapneumovirus Not Detected (Not Detect); Human Rhinovirus/Enterovirus Not Detected (Not Detect); Influenza A Subtype 2009 H1 Not Detected (Not Detect); Influenza B Not Detected (Not Detect); Mycoplasma pneumoniae Not Detected (Not Detect); Parainfluenza Virus 1 Not Detected (Not Detect); Parainfluenza Virus 2 Not Detected (Not Detect); Parainfluenza Virus 3 Not Detected (Not Detect); Parainfluenza Virus 4 Not Detected (Not Detect); Respiratory Syncytial Virus Not Detected (Not Detect); SARS-CoV-2 Not Detected (Not Detect)
[2021-11-16] MEDS: DAPTOmycin 650 MG in 0.9 % Sodium Chloride 100 ML IVPB SCH (17:30)
[2021-11-16] MEDS: cilostazoL 100 MG TABLET PO SCH (21:43)
[2021-11-17] MEDS: carvediloL 6.25 MG TABLET PO SCH ×2 (09:13→17:02)
[2021-11-17] MEDS: Vancomycin Oral Soln 125 MG/2.5 ML UDC PO SCH ×4 (09:13→20:04)
[2021-11-17] MEDS: Furosemide 20 MG TABLET PO SCH ×2 (09:13→17:02)
[2021-11-17] MEDS: Isosorbide MONOnitrate (24 HR) 30 MG TAB.ER.24H PO SCH (09:13)
[2021-11-17] MEDS: cefTRIAXone 1,000 MG in 0.9 % Sodium Chloride 10 ML IVP SCH (09:13)
[2021-11-17] MEDS: Lactobacillus 1 EACH CAP.SPRINK PO SCH (09:13)
[2021-11-17] MEDS: Gabapentin 400 MG CAPSULE PO SCH ×3 (09:13→20:03)
[2021-11-17] MEDS: *HR* Amiodarone 200 MG TABLET PO SCH (09:13)
[2021-11-17] MEDS: Nystatin POWDER 30 GM BOTTLE TP SCH ×3 (09:21→22:24)
[2021-11-17] MEDS: Insulin LISPRO 300 UNITS/3 ML VIAL SUBQ SCH ×3 (09:23→17:00)
[2021-11-17] MEDS: DAPTOmycin 650 MG in 0.9 % Sodium Chloride 100 ML IVPB SCH (17:32)
[2021-11-17] MEDS: cilostazoL 100 MG TABLET PO SCH (20:03)
[2021-11-18 04:51] LABS: Hematocrit 25.8 % (37.5-50.1); Hemoglobin 8.1 g/dL (12.9-16.9); Mean Corpuscular HGB Conc 31.4 g/dL (31.6-35.5); Mean Corpuscular Hemoglobin 28.6 pg (28.0-33.3); Mean Corpuscular Volume 91.2 fL (83.0-100.0); Mean Platelet Volume 9.5 fL (9.4-12.4); Platelet Count 262 K/mcL (140-400); Red Blood Count 2.83 M/mcL (4.19-5.50); Red Cell Distribution Width 15.4 % (11.5-14.5); White Blood Count 10.5 K/mcL (4.3-11.1)
[2021-11-18 05:05] LABS: Albumin 2.9 g/dL (3.5-5.7); Albumin/Globulin Ratio 1.2 (1.1-2.2); Bilirubin,Total 0.3 mg/dL (0.3-1.0); Calcium 8.7 mg/dL (8.6-10.3); Globulin 2.4 g/dL (2.4-3.5); Magnesium 1.9 mg/dL (1.6-2.6); Potassium 3.6 mEq/L (3.5-5.1); Total Protein 5.3 g/dL (6.4-8.9)
[2021-11-18] MEDS: Insulin LISPRO 300 UNITS/3 ML VIAL SUBQ SCH ×3 (08:30→17:17)
[2021-11-18] MEDS: cefTRIAXone 1,000 MG in 0.9 % Sodium Chloride 10 ML IVP SCH (08:31)
[2021-11-18] MEDS: Lactobacillus 1 EACH CAP.SPRINK PO SCH (08:33)
[2021-11-18] MEDS: Gabapentin 400 MG CAPSULE PO SCH ×3 (08:33→19:57)
[2021-11-18] MEDS: Isosorbide MONOnitrate (24 HR) 30 MG TAB.ER.24H PO SCH (08:33)
[2021-11-18] MEDS: Furosemide 20 MG TABLET PO SCH ×2 (08:33→17:18)
[2021-11-18] MEDS: *HR* Amiodarone 200 MG TABLET PO SCH (08:33)
[2021-11-18] MEDS: carvediloL 6.25 MG TABLET PO SCH ×2 (08:33→17:18)
[2021-11-18] MEDS: Nystatin POWDER 30 GM BOTTLE TP SCH ×3 (08:34→20:10)
[2021-11-18] MEDS: Vancomycin Oral Soln 125 MG/2.5 ML UDC PO SCH ×4 (08:50→19:57)
[2021-11-18] MEDS: DAPTOmycin 650 MG in 0.9 % Sodium Chloride 100 ML IVPB SCH (17:18)
[2021-11-18] MEDS: cilostazoL 100 MG TABLET PO SCH (19:57)
[2021-11-19 04:51] LABS: Basophils # 0.1 K/mcL (0.0-0.2); Basophils % 0.5 %; Eosinophils # 0.5 K/mcL (0.0-0.6); Eosinophils % 5.2 %; Hematocrit 27.9 % (37.5-50.1); Hemoglobin 8.7 g/dL (12.9-16.9); Immature Granulocytes % 0.7 % (0-4); Lymphocytes % 18.6 %; Mean Corpuscular HGB Conc 31.2 g/dL (31.6-35.5); Mean Corpuscular Hemoglobin 28.5 pg (28.0-33.3); Mean Corpuscular Volume 91.5 fL (83.0-100.0); Mean Platelet Volume 9.4 fL (9.4-12.4); Monocytes # 0.9 K/mcL (0.0-1.3); Monocytes % 8.4 %; Platelet Count 277 K/mcL (140-400); Red Blood Count 3.05 M/mcL (4.19-5.50); Red Cell Distribution Width 15.3 % (11.5-14.5); Segmented Neutrophils % 66.6 %; White Blood Count 10.5 K/mcL (4.3-11.1)
[2021-11-19 05:05] LABS: BUN/Creatinine Ratio 12 (6-26); Blood Urea Nitrogen 21 mg/dL (8-23)
[2021-11-19 08:28] LABS: C-Reactive Protein 24 mg/L (Less than 10)
[2021-11-19] MEDS: Furosemide 20 MG TABLET PO SCH ×2 (09:13→16:57)
[2021-11-19] MEDS: Lactobacillus 1 EACH CAP.SPRINK PO SCH (09:13)
[2021-11-19] MEDS: Gabapentin 400 MG CAPSULE PO SCH ×3 (09:14→21:39)
[2021-11-19] MEDS: Vancomycin Oral Soln 125 MG/2.5 ML UDC PO SCH ×4 (09:15→21:39)
[2021-11-19] MEDS: Isosorbide MONOnitrate (24 HR) 30 MG TAB.ER.24H PO SCH (09:15)
[2021-11-19] MEDS: carvediloL 6.25 MG TABLET PO SCH ×2 (09:15→16:57)
[2021-11-19] MEDS: cefTRIAXone 1,000 MG in 0.9 % Sodium Chloride 10 ML IVP SCH (09:16)
[2021-11-19] MEDS: Insulin LISPRO 300 UNITS/3 ML VIAL SUBQ SCH ×3 (09:20→17:04)
[2021-11-19] MEDS: *HR* Amiodarone 200 MG TABLET PO SCH (09:20)
[2021-11-19] MEDS: Nystatin POWDER 30 GM BOTTLE TP SCH ×3 (12:42→21:41)
[2021-11-19] MEDS: DAPTOmycin 650 MG in 0.9 % Sodium Chloride 100 ML IVPB SCH (17:06)
[2021-11-19] MEDS: cilostazoL 100 MG TABLET PO SCH (21:39)
[2021-11-20 04:57] LABS: Hematocrit 26.9 % (37.5-50.1); Hemoglobin 8.4 g/dL (12.9-16.9); Mean Corpuscular HGB Conc 31.2 g/dL (31.6-35.5); Mean Corpuscular Hemoglobin 28.5 pg (28.0-33.3); Mean Corpuscular Volume 91.2 fL (83.0-100.0); Mean Platelet Volume 9.2 fL (9.4-12.4); Platelet Count 272 K/mcL (140-400); Red Blood Count 2.95 M/mcL (4.19-5.50); Red Cell Distribution Width 15.5 % (11.5-14.5); White Blood Count 10.4 K/mcL (4.3-11.1)
[2021-11-20 05:13] LABS: Albumin/Globulin Ratio 1.3 (1.1-2.2); Bilirubin,Total 0.3 mg/dL (0.3-1.0); Calcium 8.9 mg/dL (8.6-10.3); Globulin 2.4 g/dL (2.4-3.5); Magnesium 1.8 mg/dL (1.6-2.6); Potassium 3.8 mEq/L (3.5-5.1); Total Protein 5.4 g/dL (6.4-8.9)
[2021-11-20] MEDS: carvediloL 6.25 MG TABLET PO SCH ×2 (09:28→17:16)
[2021-11-20] MEDS: Furosemide 20 MG TABLET PO SCH ×2 (09:29→17:16)
[2021-11-20] MEDS: Isosorbide MONOnitrate (24 HR) 30 MG TAB.ER.24H PO SCH (09:29)
[2021-11-20] MEDS: *HR* Amiodarone 200 MG TABLET PO SCH (09:29)
[2021-11-20] MEDS: cefTRIAXone 1,000 MG in 0.9 % Sodium Chloride 10 ML IVP SCH (09:29)
[2021-11-20] MEDS: Lactobacillus 1 EACH CAP.SPRINK PO SCH (09:29)
[2021-11-20] MEDS: Gabapentin 400 MG CAPSULE PO SCH ×3 (09:29→22:19)
[2021-11-20] MEDS: Vancomycin Oral Soln 125 MG/2.5 ML UDC PO SCH ×4 (09:29→22:19)
[2021-11-20] MEDS: Insulin LISPRO 300 UNITS/3 ML VIAL SUBQ SCH ×3 (09:30→17:19)
[2021-11-20] MEDS: Nystatin POWDER 30 GM BOTTLE TP SCH ×3 (09:30→22:20)
[2021-11-20] MEDS: DAPTOmycin 650 MG in 0.9 % Sodium Chloride 100 ML IVPB SCH (17:17)
[2021-11-20] MEDS: cilostazoL 100 MG TABLET PO SCH (22:19)
[2021-11-21] MEDS: *HR* Amiodarone 200 MG TABLET PO SCH (09:48)
[2021-11-21] MEDS: Gabapentin 400 MG CAPSULE PO SCH ×3 (09:48→21:42)
[2021-11-21] MEDS: carvediloL 6.25 MG TABLET PO SCH ×2 (09:48→17:49)
[2021-11-21] MEDS: Furosemide 20 MG TABLET PO SCH ×2 (09:48→17:49)
[2021-11-21] MEDS: Lactobacillus 1 EACH CAP.SPRINK PO SCH (09:49)
[2021-11-21] MEDS: Vancomycin Oral Soln 125 MG/2.5 ML UDC PO SCH ×4 (09:49→21:44)
[2021-11-21] MEDS: Isosorbide MONOnitrate (24 HR) 30 MG TAB.ER.24H PO SCH (09:49)
[2021-11-21] MEDS: cefTRIAXone 1,000 MG in 0.9 % Sodium Chloride 10 ML IVP SCH (09:50)
[2021-11-21] MEDS: Nystatin POWDER 30 GM BOTTLE TP SCH ×3 (09:51→21:47)
[2021-11-21] MEDS: Insulin LISPRO 300 UNITS/3 ML VIAL SUBQ SCH ×3 (10:24→17:50)
[2021-11-21] MEDS: DAPTOmycin 650 MG in 0.9 % Sodium Chloride 100 ML IVPB SCH (17:59)
[2021-11-21] MEDS: cilostazoL 100 MG TABLET PO SCH (21:42)
[2021-11-22] MEDS: cefTRIAXone 1,000 MG in 0.9 % Sodium Chloride 10 ML IVP SCH (08:37)
[2021-11-22] MEDS: Nystatin POWDER 30 GM BOTTLE TP SCH ×2 (08:37→18:04)
[2021-11-22] MEDS: Vancomycin Oral Soln 125 MG/2.5 ML UDC PO SCH ×3 (08:37→20:43)
[2021-11-22] MEDS: Isosorbide MONOnitrate (24 HR) 30 MG TAB.ER.24H PO SCH (08:38)
[2021-11-22] MEDS: carvediloL 6.25 MG TABLET PO SCH ×2 (08:38→15:40)
[2021-11-22] MEDS: Lactobacillus 1 EACH CAP.SPRINK PO SCH (08:39)
[2021-11-22] MEDS: Furosemide 20 MG TABLET PO SCH ×2 (08:39→15:40)
[2021-11-22] MEDS: Gabapentin 400 MG CAPSULE PO SCH ×3 (08:39→20:28)
[2021-11-22] MEDS: *HR* Amiodarone 200 MG TABLET PO SCH (08:39)
[2021-11-22] MEDS: Insulin LISPRO 300 UNITS/3 ML VIAL SUBQ SCH ×3 (08:39→18:08)
[2021-11-22] MEDS: Nystatin SUSP 5 ML UD.LIQ PO SCH ×2 (19:01→20:28)
[2021-11-22] MEDS: cilostazoL 100 MG TABLET PO SCH (20:27)
[2021-11-22] MEDS: DAPTOmycin 650 MG in 0.9 % Sodium Chloride 100 ML IVPB SCH (20:29)
[2021-11-23] MEDS: Nystatin POWDER 30 GM BOTTLE TP SCH ×4 (03:30→22:13)
[2021-11-23 05:07] LABS: Basophils % 0.4 %; Eosinophils # 0.4 K/mcL (0.0-0.6); Eosinophils % 4.1 %; Hematocrit 27.3 % (37.5-50.1); Hemoglobin 8.6 g/dL (12.9-16.9); Immature Granulocytes % 0.3 % (0-4); Lymphocytes # 2.1 K/mcL (0.6-4.6); Lymphocytes % 21.7 %; Mean Corpuscular HGB Conc 31.5 g/dL (31.6-35.5); Mean Corpuscular Hemoglobin 28.7 pg (28.0-33.3); Mean Platelet Volume 9.2 fL (9.4-12.4); Monocytes # 0.9 K/mcL (0.0-1.3); Monocytes % 9.5 %; Neutrophils # 6.3 K/mcL (1.6-8.9); Platelet Count 256 K/mcL (140-400); Red Cell Distribution Width 15.3 % (11.5-14.5); White Blood Count 9.9 K/mcL (4.3-11.1)
[2021-11-23 05:20] LABS: Calcium 8.7 mg/dL (8.6-10.3); Potassium 3.7 mEq/L (3.5-5.1)
[2021-11-23] MEDS: Furosemide 20 MG TABLET PO SCH ×2 (09:03→16:08)
[2021-11-23] MEDS: Vancomycin Oral Soln 125 MG/2.5 ML UDC PO SCH ×2 (09:03→22:12)
[2021-11-23] MEDS: Nystatin SUSP 5 ML UD.LIQ PO SCH ×4 (09:03→22:12)
[2021-11-23] MEDS: *HR* Amiodarone 200 MG TABLET PO SCH (09:04)
[2021-11-23] MEDS: Gabapentin 400 MG CAPSULE PO SCH ×3 (09:04→22:12)
[2021-11-23] MEDS: Insulin LISPRO 300 UNITS/3 ML VIAL SUBQ SCH ×3 (09:04→16:08)
[2021-11-23] MEDS: Isosorbide MONOnitrate (24 HR) 30 MG TAB.ER.24H PO SCH (09:04)
[2021-11-23] MEDS: carvediloL 6.25 MG TABLET PO SCH ×2 (09:04→16:08)
[2021-11-23] MEDS: Lactobacillus 1 EACH CAP.SPRINK PO SCH (09:04)
[2021-11-23] MEDS: DAPTOmycin 650 MG in 0.9 % Sodium Chloride 100 ML IVPB SCH (17:18)
[2021-11-23] MEDS: cilostazoL 100 MG TABLET PO SCH (22:12)
[2021-11-24] MEDS: Nystatin SUSP 5 ML UD.LIQ PO SCH ×5 (08:42→21:23)
[2021-11-24] MEDS: Vancomycin Oral Soln 125 MG/2.5 ML UDC PO SCH ×2 (08:42→20:47)
[2021-11-24] MEDS: Isosorbide MONOnitrate (24 HR) 30 MG TAB.ER.24H PO SCH (08:42)
[2021-11-24] MEDS: Lactobacillus 1 EACH CAP.SPRINK PO SCH (08:42)
[2021-11-24] MEDS: Insulin LISPRO 300 UNITS/3 ML VIAL SUBQ SCH ×3 (08:42→17:07)
[2021-11-24] MEDS: Gabapentin 400 MG CAPSULE PO SCH ×3 (08:42→20:47)
[2021-11-24] MEDS: *HR* Amiodarone 200 MG TABLET PO SCH (08:42)
[2021-11-24] MEDS: carvediloL 6.25 MG TABLET PO SCH ×2 (08:42→16:50)
[2021-11-24] MEDS: Furosemide 20 MG TABLET PO SCH ×2 (08:42→16:50)
[2021-11-24] MEDS: Nystatin POWDER 30 GM BOTTLE TP SCH ×3 (08:44→20:51)
[2021-11-24] MEDS: DAPTOmycin 650 MG in 0.9 % Sodium Chloride 100 ML IVPB SCH (16:50)
[2021-11-24] MEDS: cilostazoL 100 MG TABLET PO SCH (20:46)
[2021-11-25] MEDS: Furosemide 20 MG TABLET PO SCH ×2 (10:09→17:48)
[2021-11-25] MEDS: Isosorbide MONOnitrate (24 HR) 30 MG TAB.ER.24H PO SCH (10:09)
[2021-11-25] MEDS: Vancomycin Oral Soln 125 MG/2.5 ML UDC PO SCH ×2 (10:09→22:27)
[2021-11-25] MEDS: Insulin LISPRO 300 UNITS/3 ML VIAL SUBQ SCH ×3 (10:09→18:45)
[2021-11-25] MEDS: Lactobacillus 1 EACH CAP.SPRINK PO SCH (10:09)
[2021-11-25] MEDS: carvediloL 6.25 MG TABLET PO SCH ×2 (10:10→17:48)
[2021-11-25] MEDS: Gabapentin 400 MG CAPSULE PO SCH ×3 (10:10→22:26)
[2021-11-25] MEDS: *HR* Amiodarone 200 MG TABLET PO SCH (10:10)
[2021-11-25] MEDS: Nystatin POWDER 30 GM BOTTLE TP SCH ×3 (10:11→22:27)
[2021-11-25] MEDS: Nystatin SUSP 5 ML UD.LIQ PO SCH ×4 (10:15→22:27)
[2021-11-25] MEDS: DAPTOmycin 650 MG in 0.9 % Sodium Chloride 100 ML IVPB SCH (18:29)
[2021-11-25] MEDS: cilostazoL 100 MG TABLET PO SCH (22:26)
[2021-11-26 05:05] LABS: Basophils # 0.1 K/mcL (0.0-0.2); Basophils % 0.7 %; Eosinophils # 0.4 K/mcL (0.0-0.6); Eosinophils % 5.1 %; Hematocrit 27.3 % (37.5-50.1); Hemoglobin 8.6 g/dL (12.9-16.9); Immature Granulocytes % 0.6 % (0-4); Lymphocytes # 2.1 K/mcL (0.6-4.6); Lymphocytes % 24.6 %; Mean Corpuscular HGB Conc 31.5 g/dL (31.6-35.5); Mean Corpuscular Hemoglobin 28.6 pg (28.0-33.3); Mean Corpuscular Volume 90.7 fL (83.0-100.0); Mean Platelet Volume 9.5 fL (9.4-12.4); Monocytes # 0.8 K/mcL (0.0-1.3); Neutrophils # 5.2 K/mcL (1.6-8.9); Platelet Count 287 K/mcL (140-400); Red Blood Count 3.01 M/mcL (4.19-5.50); Red Cell Distribution Width 15.3 % (11.5-14.5); White Blood Count 8.7 K/mcL (4.3-11.1)
[2021-11-26 05:18] LABS: BUN/Creatinine Ratio 17 (6-26); Blood Urea Nitrogen 32 mg/dL (8-23)
[2021-11-26] MEDS: Insulin LISPRO 300 UNITS/3 ML VIAL SUBQ SCH ×3 (07:46→16:46)
[2021-11-26] MEDS: *HR* Amiodarone 200 MG TABLET PO SCH (07:47)
[2021-11-26] MEDS: carvediloL 6.25 MG TABLET PO SCH ×2 (07:47→16:45)
[2021-11-26] MEDS: Furosemide 20 MG TABLET PO SCH ×2 (07:47→16:45)
[2021-11-26] MEDS: Gabapentin 400 MG CAPSULE PO SCH ×3 (07:48→19:29)
[2021-11-26] MEDS: Lactobacillus 1 EACH CAP.SPRINK PO SCH (07:48)
[2021-11-26] MEDS: Vancomycin Oral Soln 125 MG/2.5 ML UDC PO SCH ×2 (07:48→19:28)
[2021-11-26] MEDS: Nystatin POWDER 30 GM BOTTLE TP SCH ×3 (07:49→19:30)
[2021-11-26] MEDS: Nystatin SUSP 5 ML UD.LIQ PO SCH ×4 (07:49→19:29)
[2021-11-26] MEDS: Isosorbide MONOnitrate (24 HR) 30 MG TAB.ER.24H PO SCH (07:49)
[2021-11-26 08:25] LABS: C-Reactive Protein 12 mg/L (Less than 10)
[2021-11-26 13:06] LABS: Creatine Kinase 49 Units/L (30-223)
[2021-11-26] MEDS: DAPTOmycin 650 MG in 0.9 % Sodium Chloride 100 ML IVPB SCH (18:30)
[2021-11-26] MEDS: cilostazoL 100 MG TABLET PO SCH (19:29)
[2021-11-27] MEDS: Vancomycin Oral Soln 125 MG/2.5 ML UDC PO SCH ×2 (08:14→20:27)
[2021-11-27] MEDS: Insulin LISPRO 300 UNITS/3 ML VIAL SUBQ SCH ×3 (08:14→16:56)
[2021-11-27] MEDS: Lactobacillus 1 EACH CAP.SPRINK PO SCH (08:15)
[2021-11-27] MEDS: Nystatin POWDER 30 GM BOTTLE TP SCH ×3 (08:15→20:30)
[2021-11-27] MEDS: Gabapentin 400 MG CAPSULE PO SCH ×3 (08:15→20:27)
[2021-11-27] MEDS: carvediloL 6.25 MG TABLET PO SCH ×2 (08:15→16:59)
[2021-11-27] MEDS: Nystatin SUSP 5 ML UD.LIQ PO SCH ×3 (08:15→16:59)
[2021-11-27] MEDS: Isosorbide MONOnitrate (24 HR) 30 MG TAB.ER.24H PO SCH (08:15)
[2021-11-27] MEDS: *HR* Amiodarone 200 MG TABLET PO SCH (08:15)
[2021-11-27] MEDS: Furosemide 20 MG TABLET PO SCH ×2 (08:15→16:59)
[2021-11-27] MEDS: DAPTOmycin 650 MG in 0.9 % Sodium Chloride 100 ML IVPB SCH (16:55)
[2021-11-27] MEDS: cilostazoL 100 MG TABLET PO SCH (20:27)
[2021-11-28] MEDS: Lactobacillus 1 EACH CAP.SPRINK PO SCH (09:46)
[2021-11-28] MEDS: Gabapentin 400 MG CAPSULE PO SCH ×3 (09:46→20:05)
[2021-11-28] MEDS: Isosorbide MONOnitrate (24 HR) 30 MG TAB.ER.24H PO SCH (09:47)
[2021-11-28] MEDS: Vancomycin Oral Soln 125 MG/2.5 ML UDC PO SCH ×2 (09:47→20:05)
[2021-11-28] MEDS: *HR* Amiodarone 200 MG TABLET PO SCH (09:47)
[2021-11-28] MEDS: Furosemide 20 MG TABLET PO SCH ×2 (09:47→17:30)
[2021-11-28] MEDS: carvediloL 6.25 MG TABLET PO SCH ×2 (09:47→17:30)
[2021-11-28] MEDS: Insulin LISPRO 300 UNITS/3 ML VIAL SUBQ SCH ×3 (09:47→17:32)
[2021-11-28] MEDS: Nystatin POWDER 30 GM BOTTLE TP SCH ×3 (09:48→20:08)
[2021-11-28] MEDS: Acetaminophen 325 MG TABLET PO PRN ×2 (11:33→20:06)
[2021-11-28] MEDS: DAPTOmycin 650 MG in 0.9 % Sodium Chloride 100 ML IVPB SCH (17:33)
[2021-11-28] MEDS: cilostazoL 100 MG TABLET PO SCH (20:05)
[2021-11-29 04:56] LABS: Basophils # 0.1 K/mcL (0.0-0.2); Basophils % 0.5 %; Eosinophils # 0.5 K/mcL (0.0-0.6); Hematocrit 28.2 % (37.5-50.1); Hemoglobin 8.9 g/dL (12.9-16.9); Immature Granulocytes % 0.3 % (0-4); Lymphocytes # 2.3 K/mcL (0.6-4.6); Lymphocytes % 24.1 %; Mean Corpuscular HGB Conc 31.6 g/dL (31.6-35.5); Mean Corpuscular Hemoglobin 28.8 pg (28.0-33.3); Mean Corpuscular Volume 91.3 fL (83.0-100.0); Mean Platelet Volume 9.5 fL (9.4-12.4); Monocytes # 0.9 K/mcL (0.0-1.3); Monocytes % 9.4 %; Neutrophils # 5.8 K/mcL (1.6-8.9); Platelet Count 272 K/mcL (140-400); Red Blood Count 3.09 M/mcL (4.19-5.50); Red Cell Distribution Width 15.7 % (11.5-14.5); Segmented Neutrophils % 60.7 %; White Blood Count 9.5 K/mcL (4.3-11.1)
[2021-11-29 05:15] LABS: Calcium 9.2 mg/dL (8.6-10.3); Potassium 3.7 mEq/L (3.5-5.1)
[2021-11-29] MEDS: Insulin LISPRO 300 UNITS/3 ML VIAL SUBQ SCH ×3 (07:52→16:23)
[2021-11-29] MEDS: Isosorbide MONOnitrate (24 HR) 30 MG TAB.ER.24H PO SCH (08:35)
[2021-11-29] MEDS: Vancomycin Oral Soln 125 MG/2.5 ML UDC PO SCH ×2 (08:35→22:07)
[2021-11-29] MEDS: Lactobacillus 1 EACH CAP.SPRINK PO SCH (08:35)
[2021-11-29] MEDS: Nystatin POWDER 30 GM BOTTLE TP SCH ×3 (08:36→22:09)
[2021-11-29] MEDS: *HR* Amiodarone 200 MG TABLET PO SCH (08:36)
[2021-11-29] MEDS: Furosemide 20 MG TABLET PO SCH ×2 (08:36→16:24)
[2021-11-29] MEDS: carvediloL 6.25 MG TABLET PO SCH ×2 (08:36→16:24)
[2021-11-29] MEDS: Gabapentin 400 MG CAPSULE PO SCH ×3 (08:36→22:08)
[2021-11-29] MEDS: DAPTOmycin 650 MG in 0.9 % Sodium Chloride 100 ML IVPB SCH (16:23)
[2021-11-29] MEDS: Acetaminophen 325 MG TABLET PO PRN (22:07)
[2021-11-29] MEDS: cilostazoL 100 MG TABLET PO SCH (22:08)
[2021-11-30] MEDS: *HR* Amiodarone 200 MG TABLET PO SCH (08:35)
[2021-11-30] MEDS: Insulin LISPRO 300 UNITS/3 ML VIAL SUBQ SCH ×3 (08:35→16:45)
[2021-11-30] MEDS: Isosorbide MONOnitrate (24 HR) 30 MG TAB.ER.24H PO SCH (08:35)
[2021-11-30] MEDS: Vancomycin Oral Soln 125 MG/2.5 ML UDC PO SCH ×2 (08:35→19:59)
[2021-11-30] MEDS: Nystatin POWDER 30 GM BOTTLE TP SCH ×3 (08:36→20:13)
[2021-11-30] MEDS: Lactobacillus 1 EACH CAP.SPRINK PO SCH (08:36)
[2021-11-30] MEDS: Gabapentin 400 MG CAPSULE PO SCH ×3 (08:36→20:01)
[2021-11-30] MEDS: carvediloL 6.25 MG TABLET PO SCH ×2 (08:36→16:43)
[2021-11-30] MEDS: Furosemide 20 MG TABLET PO SCH ×2 (08:36→16:43)
[2021-11-30] MEDS: DAPTOmycin 650 MG in 0.9 % Sodium Chloride 100 ML IVPB SCH (16:43)
[2021-11-30] MEDS: Acetaminophen 325 MG TABLET PO PRN (20:00)
[2021-11-30] MEDS: cilostazoL 100 MG TABLET PO SCH (20:01)
[2021-12-01] MEDS: Isosorbide MONOnitrate (24 HR) 30 MG TAB.ER.24H PO SCH (10:04)
[2021-12-01] MEDS: *HR* Amiodarone 200 MG TABLET PO SCH (10:04)
[2021-12-01] MEDS: Lactobacillus 1 EACH CAP.SPRINK PO SCH (10:05)
[2021-12-01] MEDS: Gabapentin 400 MG CAPSULE PO SCH ×3 (10:05→20:37)
[2021-12-01] MEDS: Vancomycin Oral Soln 125 MG/2.5 ML UDC PO SCH ×2 (10:05→20:36)
[2021-12-01] MEDS: Furosemide 20 MG TABLET PO SCH ×2 (10:05→16:44)
[2021-12-01] MEDS: carvediloL 6.25 MG TABLET PO SCH ×2 (10:05→16:43)
[2021-12-01] MEDS: Nystatin POWDER 30 GM BOTTLE TP SCH ×3 (10:06→20:37)
[2021-12-01] MEDS: Insulin LISPRO 300 UNITS/3 ML VIAL SUBQ SCH ×3 (10:09→16:48)
[2021-12-01] MEDS: DAPTOmycin 650 MG in 0.9 % Sodium Chloride 100 ML IVPB SCH (16:42)
[2021-12-01] MEDS: Acetaminophen 325 MG TABLET PO PRN (20:36)
[2021-12-01] MEDS: cilostazoL 100 MG TABLET PO SCH (20:36)
[2021-12-01] MEDS: Carbamide Peroxide 150 DROP/15 ML BOTTLE BOTH EARS SCH (20:37)
[2021-12-01] MEDS ORDERED: Carbamide Peroxide 150 DROP/15 ML BOTTLE RIGHT EAR SCH (21:00)
[2021-12-02 04:38] LABS: Basophils % 0.4 %; Eosinophils # 0.7 K/mcL (0.0-0.6); Eosinophils % 6.9 %; Hematocrit 26.3 % (37.5-50.1); Hemoglobin 8.3 g/dL (12.9-16.9); Immature Granulocytes % 0.4 % (0-4); Lymphocytes # 2.2 K/mcL (0.6-4.6); Mean Corpuscular HGB Conc 31.6 g/dL (31.6-35.5); Mean Platelet Volume 9.6 fL (9.4-12.4); Monocytes % 10.5 %; Neutrophils # 5.9 K/mcL (1.6-8.9); Platelet Count 275 K/mcL (140-400); Red Blood Count 2.86 M/mcL (4.19-5.50); Red Cell Distribution Width 15.8 % (11.5-14.5); Segmented Neutrophils % 59.8 %; White Blood Count 9.9 K/mcL (4.3-11.1)
[2021-12-02 04:50] LABS: Potassium 3.9 mEq/L (3.5-5.1)
[2021-12-02] MEDS: Nystatin POWDER 30 GM BOTTLE TP SCH ×3 (09:31→22:23)
[2021-12-02] MEDS: *HR* Amiodarone 200 MG TABLET PO SCH (09:35)
[2021-12-02] MEDS: Gabapentin 400 MG CAPSULE PO SCH ×3 (09:35→22:23)
[2021-12-02] MEDS: carvediloL 6.25 MG TABLET PO SCH ×2 (09:35→16:32)
[2021-12-02] MEDS: Lactobacillus 1 EACH CAP.SPRINK PO SCH (09:35)
[2021-12-02] MEDS: Furosemide 20 MG TABLET PO SCH ×2 (09:36→16:32)
[2021-12-02] MEDS: Isosorbide MONOnitrate (24 HR) 30 MG TAB.ER.24H PO SCH (09:36)
[2021-12-02] MEDS: Insulin LISPRO 300 UNITS/3 ML VIAL SUBQ SCH ×3 (09:40→16:33)
[2021-12-02] MEDS: Vancomycin Oral Soln 125 MG/2.5 ML UDC PO SCH ×2 (10:32→22:23)
[2021-12-02] MEDS: DAPTOmycin 650 MG in 0.9 % Sodium Chloride 100 ML IVPB SCH (17:12)
[2021-12-02] MEDS: Acetaminophen 325 MG TABLET PO PRN (22:22)
[2021-12-02] MEDS: cilostazoL 100 MG TABLET PO SCH (22:23)
[2021-12-02] MEDS: Carbamide Peroxide 150 DROP/15 ML BOTTLE BOTH EARS SCH (22:24)
[2021-12-03 04:43] LABS: Basophils % 0.3 %; Eosinophils # 0.7 K/mcL (0.0-0.6); Eosinophils % 7.6 %; Hematocrit 25.9 % (37.5-50.1); Hemoglobin 8.1 g/dL (12.9-16.9); Immature Granulocytes % 0.4 % (0-4); Lymphocytes # 2.5 K/mcL (0.6-4.6); Lymphocytes % 25.5 %; Mean Corpuscular HGB Conc 31.3 g/dL (31.6-35.5); Mean Corpuscular Hemoglobin 28.6 pg (28.0-33.3); Mean Corpuscular Volume 91.5 fL (83.0-100.0); Mean Platelet Volume 9.7 fL (9.4-12.4); Monocytes # 0.8 K/mcL (0.0-1.3); Monocytes % 8.8 %; Neutrophils # 5.5 K/mcL (1.6-8.9); Platelet Count 281 K/mcL (140-400); Red Blood Count 2.83 M/mcL (4.19-5.50); Red Cell Distribution Width 15.9 % (11.5-14.5); Segmented Neutrophils % 57.4 %; White Blood Count 9.6 K/mcL (4.3-11.1)
[2021-12-03] MEDS: *HR* Amiodarone 200 MG TABLET PO SCH (08:55)
[2021-12-03] MEDS: Lactobacillus 1 EACH CAP.SPRINK PO SCH (08:55)
[2021-12-03] MEDS: Isosorbide MONOnitrate (24 HR) 30 MG TAB.ER.24H PO SCH (08:55)
[2021-12-03] MEDS: carvediloL 6.25 MG TABLET PO SCH ×2 (08:55→16:52)
[2021-12-03] MEDS: Furosemide 20 MG TABLET PO SCH ×2 (08:55→16:53)
[2021-12-03] MEDS: Gabapentin 400 MG CAPSULE PO SCH ×3 (08:55→20:43)
[2021-12-03] MEDS: Vancomycin Oral Soln 125 MG/2.5 ML UDC PO SCH ×2 (08:56→20:43)
[2021-12-03] MEDS: Insulin LISPRO 300 UNITS/3 ML VIAL SUBQ SCH ×3 (08:56→16:51)
[2021-12-03] MEDS: Nystatin POWDER 30 GM BOTTLE TP SCH ×3 (08:56→20:46)
[2021-12-03] MEDS: DAPTOmycin 650 MG in 0.9 % Sodium Chloride 100 ML IVPB SCH (16:52)
[2021-12-03] MEDS: cilostazoL 100 MG TABLET PO SCH (20:43)
[2021-12-03] MEDS: Acetaminophen 325 MG TABLET PO PRN (20:43)
[2021-12-03] MEDS: Carbamide Peroxide 150 DROP/15 ML BOTTLE BOTH EARS SCH (20:46)
[2021-12-04] MEDS: Vancomycin Oral Soln 125 MG/2.5 ML UDC PO SCH (08:06)
[2021-12-04] MEDS: carvediloL 6.25 MG TABLET PO SCH ×2 (08:07→15:52)
[2021-12-04] MEDS: Isosorbide MONOnitrate (24 HR) 30 MG TAB.ER.24H PO SCH (08:07)
[2021-12-04] MEDS: Furosemide 20 MG TABLET PO SCH ×2 (08:07→15:51)
[2021-12-04] MEDS: Lactobacillus 1 EACH CAP.SPRINK PO SCH (08:07)
[2021-12-04] MEDS: Gabapentin 400 MG CAPSULE PO SCH ×3 (08:08→22:10)
[2021-12-04] MEDS: *HR* Amiodarone 200 MG TABLET PO SCH (08:08)
[2021-12-04] MEDS: Nystatin POWDER 30 GM BOTTLE TP SCH ×3 (08:09→22:10)
[2021-12-04] MEDS: Insulin LISPRO 300 UNITS/3 ML VIAL SUBQ SCH ×3 (08:10→17:12)
[2021-12-04] MEDS: DAPTOmycin 650 MG in 0.9 % Sodium Chloride 100 ML IVPB SCH (17:11)
[2021-12-04] MEDS: cilostazoL 100 MG TABLET PO SCH (22:09)
[2021-12-04] MEDS: Insulin DETEMIR 100 UNIT/ML X5UNITS SUBQ SCH (22:10)
[2021-12-04] MEDS: Carbamide Peroxide 150 DROP/15 ML BOTTLE BOTH EARS SCH (22:11)
[2021-12-05] MEDS: Gabapentin 400 MG CAPSULE PO SCH ×3 (08:03→20:11)
[2021-12-05] MEDS: *HR* Amiodarone 200 MG TABLET PO SCH (08:03)
[2021-12-05] MEDS: Lactobacillus 1 EACH CAP.SPRINK PO SCH (08:03)
[2021-12-05] MEDS: carvediloL 6.25 MG TABLET PO SCH ×2 (08:03→15:34)
[2021-12-05] MEDS: Isosorbide MONOnitrate (24 HR) 30 MG TAB.ER.24H PO SCH (08:03)
[2021-12-05] MEDS: Nystatin POWDER 30 GM BOTTLE TP SCH ×3 (08:04→20:11)
[2021-12-05] MEDS: Furosemide 20 MG TABLET PO SCH ×2 (08:04→15:34)
[2021-12-05] MEDS: Insulin LISPRO 300 UNITS/3 ML VIAL SUBQ SCH ×3 (08:04→17:25)
[2021-12-05] MEDS: Insulin DETEMIR 100 UNIT/ML X5UNITS SUBQ SCH ×2 (08:12→20:12)
[2021-12-05] MEDS: Vancomycin Oral Soln 125 MG/2.5 ML UDC PO SCH (08:12)
[2021-12-05] MEDS: Acetaminophen 325 MG TABLET PO PRN (15:35)
[2021-12-05] MEDS: DAPTOmycin 650 MG in 0.9 % Sodium Chloride 100 ML IVPB SCH (17:25)
[2021-12-05] MEDS: cilostazoL 100 MG TABLET PO SCH (20:12)
[2021-12-05] MEDS: Carbamide Peroxide 150 DROP/15 ML BOTTLE BOTH EARS SCH (21:10)
[2021-12-06] MEDS: *HR* Amiodarone 200 MG TABLET PO SCH (08:03)
[2021-12-06] MEDS: carvediloL 6.25 MG TABLET PO SCH ×2 (08:03→16:59)
[2021-12-06] MEDS: Furosemide 20 MG TABLET PO SCH ×2 (08:03→16:59)
[2021-12-06] MEDS: Lactobacillus 1 EACH CAP.SPRINK PO SCH (08:04)
[2021-12-06] MEDS: Gabapentin 400 MG CAPSULE PO SCH ×3 (08:04→20:27)
[2021-12-06] MEDS: Isosorbide MONOnitrate (24 HR) 30 MG TAB.ER.24H PO SCH (08:04)
[2021-12-06] MEDS: Vancomycin Oral Soln 125 MG/2.5 ML UDC PO SCH (08:10)
[2021-12-06] MEDS: Insulin LISPRO 300 UNITS/3 ML VIAL SUBQ SCH ×3 (08:11→17:00)
[2021-12-06] MEDS: Nystatin POWDER 30 GM BOTTLE TP SCH ×3 (08:25→20:29)
[2021-12-06] MEDS: Insulin DETEMIR 100 UNIT/ML X5UNITS SUBQ SCH ×2 (08:44→20:28)
[2021-12-06] MEDS: DAPTOmycin 650 MG in 0.9 % Sodium Chloride 100 ML IVPB SCH (16:59)
[2021-12-06] MEDS: Carbamide Peroxide 150 DROP/15 ML BOTTLE BOTH EARS SCH (20:27)
[2021-12-06] MEDS: cilostazoL 100 MG TABLET PO SCH (20:28)
[2021-12-07 05:26] LABS: Hematocrit 29.2 % (37.5-50.1); Hemoglobin 9.2 g/dL (12.9-16.9); Mean Corpuscular HGB Conc 31.5 g/dL (31.6-35.5); Mean Corpuscular Hemoglobin 28.6 pg (28.0-33.3); Mean Corpuscular Volume 90.7 fL (83.0-100.0); Mean Platelet Volume 9.8 fL (9.4-12.4); Platelet Count 285 K/mcL (140-400); Red Blood Count 3.22 M/mcL (4.19-5.50); Red Cell Distribution Width 15.5 % (11.5-14.5); White Blood Count 10.7 K/mcL (4.3-11.1)
[2021-12-07 05:38] LABS: Albumin 3.7 g/dL (3.5-5.7); Albumin/Globulin Ratio 1.3 (1.1-2.2); Bilirubin,Total 0.4 mg/dL (0.3-1.0); Calcium 9.3 mg/dL (8.6-10.3); Globulin 2.8 g/dL (2.4-3.5); Magnesium 2.1 mg/dL (1.6-2.6); Potassium 3.6 mEq/L (3.5-5.1); Total Protein 6.5 g/dL (6.4-8.9)
[2021-12-07] MEDS: Insulin LISPRO 300 UNITS/3 ML VIAL SUBQ SCH ×3 (08:18→17:00)
[2021-12-07] MEDS: Gabapentin 400 MG CAPSULE PO SCH ×3 (08:20→20:37)
[2021-12-07] MEDS: *HR* Amiodarone 200 MG TABLET PO SCH (08:21)
[2021-12-07] MEDS: Isosorbide MONOnitrate (24 HR) 30 MG TAB.ER.24H PO SCH (08:21)
[2021-12-07] MEDS: Furosemide 20 MG TABLET PO SCH ×2 (08:21→17:00)
[2021-12-07] MEDS: carvediloL 6.25 MG TABLET PO SCH ×2 (08:21→17:00)
[2021-12-07] MEDS: Lactobacillus 1 EACH CAP.SPRINK PO SCH (08:21)
[2021-12-07] MEDS: Vancomycin Oral Soln 125 MG/2.5 ML UDC PO SCH (08:22)
[2021-12-07] MEDS: Nystatin POWDER 30 GM BOTTLE TP SCH ×3 (08:23→20:39)
[2021-12-07] MEDS: Insulin DETEMIR 100 UNIT/ML X5UNITS SUBQ SCH ×2 (08:30→20:45)
[2021-12-07] MEDS: cilostazoL 100 MG TABLET PO SCH (20:37)
[2021-12-07] MEDS: Carbamide Peroxide 150 DROP/15 ML BOTTLE BOTH EARS SCH (20:39)
[2021-12-08] MEDS: Insulin LISPRO 300 UNITS/3 ML VIAL SUBQ SCH ×3 (08:17→17:22)
[2021-12-08] MEDS: Insulin DETEMIR 100 UNIT/ML X5UNITS SUBQ SCH ×2 (08:17→21:32)
[2021-12-08] MEDS: carvediloL 6.25 MG TABLET PO SCH ×2 (08:19→17:21)
[2021-12-08] MEDS: Lactobacillus 1 EACH CAP.SPRINK PO SCH (08:19)
[2021-12-08] MEDS: *HR* Amiodarone 200 MG TABLET PO SCH (08:19)
[2021-12-08] MEDS: Gabapentin 400 MG CAPSULE PO SCH ×3 (08:19→21:24)
[2021-12-08] MEDS: Furosemide 20 MG TABLET PO SCH ×2 (08:19→17:21)
[2021-12-08] MEDS: Nystatin POWDER 30 GM BOTTLE TP SCH ×3 (08:20→19:36)
[2021-12-08] MEDS: Vancomycin Oral Soln 125 MG/2.5 ML UDC PO SCH (08:20)
[2021-12-08] MEDS: Isosorbide MONOnitrate (24 HR) 30 MG TAB.ER.24H PO SCH (08:20)
[2021-12-08] MEDS: Carbamide Peroxide 150 DROP/15 ML BOTTLE BOTH EARS SCH ×2 (21:25→21:31)
[2021-12-08] MEDS: cilostazoL 100 MG TABLET PO SCH (21:25)
[2021-12-09 04:55] LABS: Hematocrit 29.5 % (37.5-50.1); Hemoglobin 9.4 g/dL (12.9-16.9); Mean Corpuscular HGB Conc 31.9 g/dL (31.6-35.5); Mean Corpuscular Hemoglobin 28.4 pg (28.0-33.3); Mean Corpuscular Volume 89.1 fL (83.0-100.0); Mean Platelet Volume 9.6 fL (9.4-12.4); Platelet Count 268 K/mcL (140-400); Red Blood Count 3.31 M/mcL (4.19-5.50); Red Cell Distribution Width 15.3 % (11.5-14.5); White Blood Count 9.1 K/mcL (4.3-11.1)
[2021-12-09 05:10] LABS: Calcium 9.2 mg/dL (8.6-10.3); Potassium 3.5 mEq/L (3.5-5.1)
[2021-12-09] MEDS: Lactobacillus 1 EACH CAP.SPRINK PO SCH (08:07)
[2021-12-09] MEDS: Gabapentin 400 MG CAPSULE PO SCH ×3 (08:07→20:49)
[2021-12-09] MEDS: Isosorbide MONOnitrate (24 HR) 30 MG TAB.ER.24H PO SCH (08:08)
[2021-12-09] MEDS: carvediloL 6.25 MG TABLET PO SCH ×2 (08:08→16:30)
[2021-12-09] MEDS: Furosemide 20 MG TABLET PO SCH ×2 (08:08→16:29)
[2021-12-09] MEDS: *HR* Amiodarone 200 MG TABLET PO SCH (08:08)
[2021-12-09] MEDS: Vancomycin Oral Soln 125 MG/2.5 ML UDC PO SCH (08:09)
[2021-12-09] MEDS: Insulin DETEMIR 100 UNIT/ML X5UNITS SUBQ SCH ×2 (08:10→20:52)
[2021-12-09] MEDS: Insulin LISPRO 300 UNITS/3 ML VIAL SUBQ SCH ×3 (08:10→16:30)
[2021-12-09] MEDS: Nystatin POWDER 30 GM BOTTLE TP SCH ×3 (08:17→20:50)
[2021-12-09] MEDS: cilostazoL 100 MG TABLET PO SCH (20:49)
[2021-12-10] MEDS: Furosemide 20 MG TABLET PO SCH ×2 (08:12→16:22)
[2021-12-10] MEDS: Lactobacillus 1 EACH CAP.SPRINK PO SCH (08:12)
[2021-12-10] MEDS: Gabapentin 400 MG CAPSULE PO SCH ×3 (08:12→20:10)
[2021-12-10] MEDS: *HR* Amiodarone 200 MG TABLET PO SCH (08:12)
[2021-12-10] MEDS: Isosorbide MONOnitrate (24 HR) 30 MG TAB.ER.24H PO SCH (08:13)
[2021-12-10] MEDS: carvediloL 6.25 MG TABLET PO SCH ×2 (08:13→16:22)
[2021-12-10] MEDS: Vancomycin Oral Soln 125 MG/2.5 ML UDC PO SCH (08:14)
[2021-12-10] MEDS: Insulin LISPRO 300 UNITS/3 ML VIAL SUBQ SCH ×3 (08:14→16:22)
[2021-12-10] MEDS ORDERED: Insulin DETEMIR 100 UNIT/ML per UNIT SUBQ ONE (09:00)
[2021-12-10] MEDS: Nystatin POWDER 30 GM BOTTLE TP SCH ×3 (09:18→20:14)
[2021-12-10] MEDS: cilostazoL 100 MG TABLET PO SCH (20:10)
[2021-12-10] MEDS: Insulin DETEMIR 100 UNIT/ML X5UNITS SUBQ SCH ×2 (20:11→20:12)
[2021-12-10] MEDS: Carbamide Peroxide 150 DROP/15 ML BOTTLE BOTH EARS SCH (20:13)
[2021-12-10] MEDS: Acetaminophen 325 MG TABLET PO PRN (20:15)
[2021-12-11] MEDS: Insulin LISPRO 300 UNITS/3 ML VIAL SUBQ SCH ×3 (07:56→17:15)
[2021-12-11] MEDS: Gabapentin 400 MG CAPSULE PO SCH ×3 (07:58→21:37)
[2021-12-11] MEDS: Isosorbide MONOnitrate (24 HR) 30 MG TAB.ER.24H PO SCH (07:58)
[2021-12-11] MEDS: *HR* Amiodarone 200 MG TABLET PO SCH (07:58)
[2021-12-11] MEDS: carvediloL 6.25 MG TABLET PO SCH ×2 (07:58→17:03)
[2021-12-11] MEDS: Lactobacillus 1 EACH CAP.SPRINK PO SCH (07:58)
[2021-12-11] MEDS: Furosemide 20 MG TABLET PO SCH ×2 (07:58→17:04)
[2021-12-11] MEDS: Nystatin POWDER 30 GM BOTTLE TP SCH ×3 (08:00→21:46)
[2021-12-11] MEDS: Insulin DETEMIR 100 UNIT/ML X5UNITS SUBQ SCH ×2 (08:03→21:37)
[2021-12-11] MEDS: Acetaminophen 325 MG TABLET PO PRN (21:35)
[2021-12-11] MEDS: cilostazoL 100 MG TABLET PO SCH (21:36)
[2021-12-11] MEDS: Carbamide Peroxide 150 DROP/15 ML BOTTLE BOTH EARS SCH (21:45)
[2021-12-12] MEDS: Isosorbide MONOnitrate (24 HR) 30 MG TAB.ER.24H PO SCH (07:44)
[2021-12-12] MEDS: Lactobacillus 1 EACH CAP.SPRINK PO SCH (07:44)
[2021-12-12] MEDS: carvediloL 6.25 MG TABLET PO SCH ×2 (07:45→17:00)
[2021-12-12] MEDS: Gabapentin 400 MG CAPSULE PO SCH ×3 (07:45→20:49)
[2021-12-12] MEDS: *HR* Amiodarone 200 MG TABLET PO SCH (07:46)
[2021-12-12] MEDS: Furosemide 20 MG TABLET PO SCH ×2 (07:46→17:00)
[2021-12-12] MEDS: Insulin LISPRO 300 UNITS/3 ML VIAL SUBQ SCH ×3 (07:48→17:01)
[2021-12-12] MEDS: Insulin DETEMIR 100 UNIT/ML X5UNITS SUBQ SCH ×2 (09:27→20:50)
[2021-12-12] MEDS: Nystatin POWDER 30 GM BOTTLE TP SCH ×3 (09:28→20:58)
[2021-12-12] MEDS: Acetaminophen 325 MG TABLET PO PRN ×2 (12:14→20:53)
[2021-12-12] MEDS: cilostazoL 100 MG TABLET PO SCH (20:49)
[2021-12-12] MEDS: Carbamide Peroxide 150 DROP/15 ML BOTTLE BOTH EARS SCH (20:58)
[2021-12-13 05:06] LABS: Basophils # 0.1 K/mcL (0.0-0.2); Basophils % 0.7 %; Eosinophils # 0.5 K/mcL (0.0-0.6); Eosinophils % 5.6 %; Hematocrit 30.7 % (37.5-50.1); Hemoglobin 9.7 g/dL (12.9-16.9); Immature Granulocytes % 0.3 % (0-4); Lymphocytes # 2.5 K/mcL (0.6-4.6); Lymphocytes % 25.6 %; Mean Corpuscular HGB Conc 31.6 g/dL (31.6-35.5); Mean Corpuscular Hemoglobin 28.5 pg (28.0-33.3); Mean Corpuscular Volume 90.3 fL (83.0-100.0); Mean Platelet Volume 9.8 fL (9.4-12.4); Monocytes # 0.9 K/mcL (0.0-1.3); Monocytes % 9.1 %; Neutrophils # 5.7 K/mcL (1.6-8.9); Platelet Count 267 K/mcL (140-400); Red Cell Distribution Width 15.6 % (11.5-14.5); Segmented Neutrophils % 58.7 %; White Blood Count 9.7 K/mcL (4.3-11.1)
[2021-12-13 05:32] LABS: Albumin 3.8 g/dL (3.5-5.7); Albumin/Globulin Ratio 1.5 (1.1-2.2); Bilirubin,Total 0.4 mg/dL (0.3-1.0); Calcium 9.4 mg/dL (8.6-10.3); Globulin 2.6 g/dL (2.4-3.5); Potassium 3.4 mEq/L (3.5-5.1); Total Protein 6.4 g/dL (6.4-8.9)
[2021-12-13] MEDS: Lactobacillus 1 EACH CAP.SPRINK PO SCH (08:12)
[2021-12-13] MEDS: Acetaminophen 325 MG TABLET PO PRN ×2 (08:13→16:45)
[2021-12-13] MEDS: Gabapentin 400 MG CAPSULE PO SCH ×3 (08:14→21:07)
[2021-12-13] MEDS: Isosorbide MONOnitrate (24 HR) 30 MG TAB.ER.24H PO SCH (08:14)
[2021-12-13] MEDS: carvediloL 6.25 MG TABLET PO SCH ×2 (08:14→16:45)
[2021-12-13] MEDS: *HR* Amiodarone 200 MG TABLET PO SCH (08:14)
[2021-12-13] MEDS: Furosemide 20 MG TABLET PO SCH ×2 (08:14→16:45)
[2021-12-13] MEDS: Insulin LISPRO 300 UNITS/3 ML VIAL SUBQ SCH ×3 (08:15→16:47)
[2021-12-13] MEDS: Nystatin POWDER 30 GM BOTTLE TP SCH ×3 (08:15→20:49)
[2021-12-13] MEDS: Insulin DETEMIR 100 UNIT/ML X5UNITS SUBQ SCH ×2 (08:21→21:07)
[2021-12-13] MEDS: cilostazoL 100 MG TABLET PO SCH (21:06)
[2021-12-13] MEDS: Carbamide Peroxide 150 DROP/15 ML BOTTLE BOTH EARS SCH (21:07)
[2021-12-14 07:31] VITALS: BP 142/85; PULSE 83; RESP 17; TEMP 97.6; O2SAT 95
[2021-12-14] MEDS: Insulin LISPRO 300 UNITS/3 ML VIAL SUBQ SCH (07:53)
[2021-12-14] MEDS: Isosorbide MONOnitrate (24 HR) 30 MG TAB.ER.24H PO SCH (07:54)
[2021-12-14] MEDS: Lactobacillus 1 EACH CAP.SPRINK PO SCH (07:54)
[2021-12-14] MEDS: carvediloL 6.25 MG TABLET PO SCH (07:54)
[2021-12-14] MEDS: Furosemide 20 MG TABLET PO SCH (07:54)
[2021-12-14] MEDS: Gabapentin 400 MG CAPSULE PO SCH (07:54)
[2021-12-14] MEDS: Acetaminophen 325 MG TABLET PO PRN (07:54)
[2021-12-14] MEDS: *HR* Amiodarone 200 MG TABLET PO SCH (07:55)
[2021-12-14] MEDS: Insulin DETEMIR 100 UNIT/ML X5UNITS SUBQ SCH (08:02)
== END 2021-12-14 10:05 | disposition home health service (06) | DRG 862 ==
LOC: INPGRE 10-31 21:12
PROVIDERS: ADMIT Family Medicine; ATTEND Family Medicine